=== PATIENT | male | born 1965 | race Caucasian/White ===

== ENCOUNTER 2020-09-23 09:32 | Outpatient (REF) | payer OTHER, SELFPAY ==
[2020-09-23 11:14] LABS: MANUAL DIFF FLAG NO
[2020-09-23 11:24] LABS: Basophils Absolute Auto 0.1 X10*3/uL (0.0-0.2); Basophils Percent Auto 0.8 % (0-2); Eosinophils Absolute Auto 0.3 X10*3/uL (0.0-0.4); Eosinophils Percent Auto 3.9 % (0-4); Hematocrit 43.5 % (42-52); Hemoglobin 14.2 g/dl (14.0-18.0); Imm Gran Abs Auto 0.03 X10*3/uL (0.00-0.03); Imm Gran Pct Auto 0.5 % (0.0-0.4); Lymphocytes Absolute Auto 1.6 X10*3/uL (1.2-4.9); Lymphocytes Percent Auto 24.5 % (20-40); Mean Corpuscular HGB Conc 32.6 g/dl (31.0-36.0); Mean Corpuscular Hemoglobin 28.7 pg (27.0-33.0); Mean Corpuscular Volume 87.9 fL (80-98); Mean Platelet Volume 10.9 fL (9.4-12.4); Monocytes Absolute Auto 0.4 X10*3/uL (0.1-1.2); Monocytes Percent Auto 6.3 % (2-11); Neutrophils Absolute Auto 4.2 X10*3/uL (2.0-8.3); Platelet Count 225 X10*3/uL (160-400); Red Blood Count 4.95 X10*6/uL (4.60-5.80); Red Cell Distribution Width 13.5 % (11.0-16.0); White Blood Count 6.5 X10*3/uL (4.8-10.8)
[2020-09-23 11:50] LABS: Alanine Aminotransferase 57 U/L (0-40); Albumin Level 4.6 g/dL (3.5-5.0); Alkaline Phosphatase 68 U/L (39-117); Anion Gap 12 (12-20); Aspartate Amino Transferase 71 U/L (5-37); Bilirubin Total 0.6 mg/dL (0.0-1.0); Blood Urea Nitrogen 16 mg/dL (9-16); Calcium 9.4 mg/dL (8.4-10.2); Carbon Dioxide 30 mmol/L (22-29); Chloride 104 mmol/L (96-108); Cholesterol 293 mg/dL; Estimated Glomerular Filt Rate > 60; Glucose Fasting 112 mg/dL (60-99); HDL Cholesterol 45 mg/dL; Iron 66 mcg/dL (45-160); LDL Cholesterol Calculated 213 mg/dl; Percent Iron Saturation 18 % (15-50); Potassium 4.1 mmol/L (3.3-5.1); Sodium 142 mmol/L (135-145); Total Iron Binding Capacity 367 mcg/dL (228-428); Total Protein 7.5 g/dL (6.5-8.0); Triglycerides 176 mg/dL; Unsaturated Iron Binding 301 ug/dL
[2020-09-23 11:57] LABS: Vitamin B12 597 pg/mL (200-900)
[2020-09-23 12:10] LABS: TSH reflex Free T4 2.13 uIU/mL (0.32-4.0)
[2020-09-23 12:41] LABS: Ferritin 145 ng/mL (20-250); Prostate Specific Antigen Scr 0.23 ng/mL (<0.05-4.0)
[2020-09-24 16:52] LABS: Lyme Abs Screen <0.90 index
== END 2020-09-23 09:33 | disposition home or self-care (01) ==
LOC: HO.HMGCLDS 09:32
PROVIDERS: PCP Nurse Practitioner Family; Visit Provider Nurse Practitioner Family
DX: R53.83 Other fatigue (principal); Z12.5 Encounter for screening for malignant neoplasm of prostate
CPT/HCPCS: 36415; 80053; 80061; 82607; 82728; 83540; 84153; 84443; 85025; 86617; 86618

== ENCOUNTER 2020-10-24 10:31 | Outpatient (REF) | payer OTHER, SELFPAY ==
[2020-10-24 11:55] LABS: Glucose Urine UA NEG (NEG); Leukocyte Esterase Urine NEG (NEG); Nitrite Urine NEG (NEG); PH 5.5 (5.0-8.0); Specific Gravity - Urine 1.025 (1.005-1.025); Urine Blood NEG (NEG); Urine Ketones NEG (NEG); Urine Protein NEG (NEG-TRACE)
[2020-10-24 12:09] LABS: Appearance Urine HAZY; Color Urine YELLOW
[2020-10-27 04:16] LABS: HBc Num1 0.06 S/CO (0.00-0.79); HBsAGNum1 0.22 S/CO (0.00-0.99); Hepatitis B Core Antibody Nonreactive (Nonreactive); Hepatitis B Surface Antigen Negative (Negative)
[2020-10-27 04:31] LABS: ~Hepatitis B Surface Antibody NONREACTIVE (Nonreactive); ~Hepatitis C Antibody Nonreactive (Nonreactive)
[2020-10-28 08:37] LABS: HBS Num1 0.86 mIU/mL (0-7.99); ~HepC Num1 0.08 S/CO (0.00-0.79)
[2020-10-28 10:41] LABS: Hepatitis A Antibody IgM 0.15 Index (0-0.79); ~Hepatitis A Antibody IgM Nonreactive (Nonreactive)
== END 2020-10-24 10:32 | disposition home or self-care (01) ==
LOC: HO.HMGCLDS 10:31
PROVIDERS: PCP Nurse Practitioner Family; Visit Provider Nurse Practitioner Family
DX: Z01.84 Encounter for antibody response examination (principal); Z11.59 Encounter for screening for other viral diseases; R74.8 Abnormal levels of other serum enzymes; R53.83 Other fatigue
CPT/HCPCS: 36415; 81003; 86704; 86706; 86709; 86803; 87340

== ENCOUNTER → 2020-11-06 07:08 | Outpatient (REF) | payer OTHER, SELFPAY ==
--- NOTE | 2020-11-06 07:13 | CA_ITS ---
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 - Normal right ventricular cavity size and systolic function. - There is mild dilatation of the sinuses of Valsalva and mild dilatation of the ascending aorta. Findings Left Ventricle Normal left ventricular size, thickness, systolic function, and wall motion. The visually estimated ejection fraction is between 55-60%. Diastolic function is indeterminate on the basis of available data. Spectral Doppler is indicative of an impaired relaxation filling pattern. E/E prime ratio is <8, consistent with normal filling pressures. Right Ventricle Normal right ventricular cavity size and systolic function. Atria The left atrium is normal in size. Aortic Valve Normal aortic valve structure and function. There is no aortic valve stenosis. There is trace (trivial) aortic valve regurgitation. Mitral Valve Normal mitral valve structure and function. There is no mitral valve regurgitation. There is no mitral valve stenosis. Pulmonic Valve Normal pulmonic valve structure and function. There is trace pulmonic valve regurgitation. Tricuspid Valve Normal tricuspid valve structure and function. There is trace tricuspid valve regurgitation. Normal right atrial pressure. There is no evidence of pulmonary hypertension. Great Vessels There is mild dilatation of the sinuses of Valsalva and mild dilatation of the ascending aorta. The visualized portions of the pulmonary artery and branches are normal. Venous The inferior vena cava is normal in size and collapses greater than 50% with inspiration. Pericardium/Pleural There is no evidence of pericardial effusion. Measurements 2D Linear Measurements IVSd: 1.00 0.6-0.9/0.6-1.0 cm LVIDd: 5.50 3.9-5.3/4.2-5.9 cm LVIDd Index: 2.34 2.4-3.2/2.2-3.1 cm/m2 LVIDs: 2.83 2.0-3.6 cm LVPWd: 0.93 0.7-1.1 cm Ao Root: 4.30 2.1-3.5 cm LA Diam: 3.30 2.7-3.8/3.0-4.0 cm LAIDs Index: 1.40 1.5-2.3 cm/m2 LV Mass: 253.72 67-162/88-224 g LV Mass Index: 107.97 43-95/49-115 g/m2 LVOT Diam: 2.20 3.0+(-)1.3 cm Mitral Valve MV Pk E: 0.52 MV PK A: 0.76 MV Decel Time: 317.00 E/A: 0.70 E'Lateral: 8.38 E'Medial: 6.74 E/E' Med: 7.80 E/E' Lat: 6.20 PHT: 93.00 MVA PHT: 2.37 Decel Motley: 1.65 Aortic Valve AoV Pk Delroy: 1.54 AoV Mn Delroy: 1.08 AoV VTI: 0.29 AoV Pk Grad: 9.00 Aov Mn Grad: 5.00 ANTONIO Cont.VTI: 2.91 LVOT LVOT Pk Delroy: 1.06 LVOT Mn Delroy: 0.82 LVOT VTI: 0.22 LVOT Pk Grad: 4.00 LVOT Mn Grad: 3.00 LVOT Diam: 2.20 LVOT Area: 3.80 Diastolic Function MV Pk E: 0.52 MV Pk A: 0.76 E/A: 0.70 E'Medial: 6.74 E/E' Med: 7.80 E' Laterial: 8.38 E/E' Lat: 6.20 Tricuspid Valve TR Pk Delroy: 2.00 TR Pk Grad: 16.00 RA Press: 3.00 RVSP: 19.00 Great Vessels Aorta Ao Root-2D: 4.30 2.0-3.7 cm Sinus of Valsalva: 4.30 2.0-3.5 cm Ao Asc: 4.00 2.1-3.4 cm Updated in Other Vendor System with Status of Final Andrés Hatfield MD electronically signed on 11/08/2020 8:21:12 PM with status of Final
--- NOTE | 2020-11-06 07:13 | ECG_ITS ---
Hook-up date: 2020-11-06 08:57:00 Duration: 47:59:00 Test Indications: SVT Medications: [id number] QRS complexes 1240 Ventricular ectopics which represent 1 % of total QRS comp. 200 Supraventricular ectopics which represent <1 % of total QRS comp. * Paced QRS complexs which represent % of total QRS comp. VENTRICULAR ECTOPY 1221 Isolated 58 Bigeminal Cycles 10 Couplets 0 Runs 0 Beats in Runs * Beats LONGEST at * BPM at :: -- * Beats FASTEST at * BPM at :: -- SUPRAVENTRICULAR ECTOPY 134 Isolated 18 Couplets 9 Runs 30 Beats in Runs 5 Beats LONGEST at 104 BPM at 08:03:33 2020-11-07 5 Beats FASTEST at 104 BPM at 08:03:33 2020-11-07 HEART RATES 51 MIN at 10:15:47 2020-11-07 67 AVG 103 MAX at 04:56:21 2020-11-07 LONGEST RR 1.4160 secs at 10:12:17 2020-11-07 S-T LEVELS Channel 1 - 128 mm at 08:57:00 2020-11-06 - 128 mm at 08:57:00 2020-11-06 Channel 2 - 128 mm at 08:57:00 2020-11-06 - 128 mm at 08:57:00 2020-11-06 Channel 3 - 128 mm at 02:81:61 -- - 128 mm at 02:81:61 Basic rhythm Normal sinus rhythm No long pause or profound bradycardia Frequent Premature ventricular complexes Occasional Premature atrial complexes No sustained Supraventricular tachycardia No diary submitted Referred By: Popeye Lee Overread By: JODIE ORNELAS MD
== END ==
LOC: HO.CARD 07:08
PROVIDERS: PCP Nurse Practitioner Family; Visit Provider Nurse Practitioner Family
DX: I47.1 Supraventricular tachycardia (principal)
CPT/HCPCS: 93225; 93226; 93306

== ENCOUNTER → 2020-12-01 10:52 | Outpatient (BNVA) | payer OTHER, SELFPAY | PROVIDERS: PCP Nurse Practitioner Family; Referring Provider Nurse Practitioner Family; Visit Provider Psychiatry & Neurology Neurology ==

== ENCOUNTER 2021-08-01 05:27 | Emergency (ER) | payer OTHER, SELFPAY ==
--- NOTE | ~2021-08-01 | CT_ITS ---
EXAMINATION: CT ABDOMEN AND PELVIS WITHOUT CONTRAST CLINICAL INFORMATION: Right-sided flank pain COMPARISON: Abdominal ultrasound of 05/17/2017 TECHNIQUE: Multidetector volumetric imaging was performed from the superior aspect of the liver through the pubic symphysis. Sagittal and coronal reformatted images were obtained on the technologist's workstation. This CT examination was performed using dose optimization techniques as appropriate, variously including the following: *Automated exposure control *Adjustment of mA and/or kV according to patient size (this includes techniques or standardized protocols for targeted exams where dose is matched to indication/reason for exam; i.e. extremities or head) *Use of iterative reconstruction technique DLP: 784 mGy-cm FINDINGS: LUNG BASES: The visualized lung bases are unremarkable. Moderate size hiatal hernia containing portion of the stomach. LIVER, GALLBLADDER, AND BILIARY TREE: The liver is normal in size, shape, and attenuation. No focal hepatic lesion or biliary ductal dilatation is present. The gallbladder is unremarkable with no evidence of radiopaque gallstones, gallbladder wall thickening, or obvious pericholecystic inflammatory changes. PANCREAS: Unremarkable. SPLEEN: Unremarkable. ADRENAL GLANDS: Unremarkable. KIDNEYS, URETERS AND BLADDER: The kidneys are normal in size, shape and attenuation. Urinary bladder is decompressed and therefore not optimally evaluated. A 0.3 cm calculus is noted in the bladder region, in the vicinity of the right ureterovesical junction, either in the intramural portion of the right UVJ or within the urinary bladder. No significant hydroureter is noted. There is mild hydronephrosis. Minimal right perinephric stranding. No additional radiopaque urinary tract calculi are noted. No left hydroureteronephrosis. GASTROINTESTINAL TRACT: The stomach is decompressed and grossly appears unremarkable. No abnormal small bowel dilatation. The colon is normal in caliber. No evidence of colonic wall thickening or pericolonic fat stranding. Scattered mild diffuse colonic diverticulosis. Appendix is normal. ABDOMINAL WALL: Bilateral fat-containing inguinal hernias, on the left measuring 3.6 cm and on the right measuring 3.4 cm in maximum dimensions. LYMPH NODES: No evidence of pathologically enlarged lymph nodes. VASCULAR: The aortoiliac vessels are normal in caliber. Minimal calcific atherosclerosis of the aorta. PELVIC VISCERA: Unremarkable. OSSEOUS STRUCTURES: No acute or suspicious osseous abnormality. CT/CT abdomen pelvis wo con IMPRESSION: A 0.3 cm calculus either in the intramural portion of the right ureterovesical junction or within the urinary bladder lumen. Mild right hydroureter nephrosis, no significant right hydroureter. No additional radiopaque urinary tract calculi. Moderate size hiatal hernia. Normal appendix. Scattered mild colonic diverticulosis without acute diverticulitis. Fleischner guidelines were followed.
[2021-08-01 06:13] VITALS: BP 150/90; PULSE 80; RESP 22; TEMP 36.8; O2SAT 97; BMI 31.6
[2021-08-01 06:29] LABS: Basophils Percent Auto 0.6 % (0-2); Eosinophils Absolute Auto 0.2 X10*3/uL (0.0-0.4); Eosinophils Percent Auto 3.3 % (0-4); Hematocrit 41.7 % (42.0-52.0); Hemoglobin 13.8 g/dl (14.0-18.0); Imm Gran Abs Auto 0.03 X10*3/uL (0.00-0.03); Imm Gran Pct Auto 0.4 % (0.0-0.4); Lymphocytes Absolute Auto 1.3 X10*3/uL (1.2-4.9); Lymphocytes Percent Auto 17.8 % (20-40); MANUAL DIFF FLAG NO; Mean Corpuscular HGB Conc 33.1 g/dl (31.0-36.0); Mean Corpuscular Hemoglobin 28.4 pg (27.0-33.0); Mean Corpuscular Volume 85.8 fL (80.0-98.0); Mean Platelet Volume 10.4 fL (9.4-12.4); Monocytes Absolute Auto 0.5 X10*3/uL (0.1-1.2); Monocytes Percent Auto 6.8 % (2-11); Neutrophils Absolute Auto 5.1 x10*3/uL (2.0-8.3); Neutrophils Percent Auto 71.1 % (45-73); Platelet Count 197 X10*3/uL (160-400); Red Blood Count 4.86 X10*6/uL (4.60-5.80); Red Cell Distribution Width 13.5 % (11.0-16.0); White Blood Count 7.2 X10*3/uL (4.8-10.8)
[2021-08-01 06:43] LABS: Alanine Aminotransferase 47 U/L (0-40); Albumin Level 4.6 g/dL (3.5-5.0); Alkaline Phosphatase 68 U/L (39-117); Anion Gap 14 (12-20); Aspartate Amino Transferase 50 U/L (5-37); Bilirubin Total 0.6 mg/dL (0.0-1.0); Blood Urea Nitrogen 20 mg/dL (9-16); COVID-19 Test Negative (Negative); Calcium 9.3 mg/dL (8.4-10.2); Carbon Dioxide 26 mmol/L (22-29); Chloride 105 mmol/L (96-108); Creatinine Clr Calc Pharmacy 84.4; Estimated Glomerular Filt Rate 60; Glucose Random 146 mg/dL (60-115); Potassium 4.1 mmol/L (3.3-5.1); Sodium 141 mmol/L (135-145); Total Protein 7.4 g/dL (6.5-8.0)
--- NOTE | 2021-08-01 07:16 | ED_ITS ---
HPI - Abdominal Pain General Chief Complaint: Abdominal Pain Stated Complaint: Flank pain Time Seen by Provider: 08/01/21 07:11 Source: patient Mode of arrival: ambulatory Limitations: no limitations History of Present Illness HPI narrative: 56-year-old male came in for evaluation of right flank pain. Woke up early this morning with right flank pain radiating down to the right lower abdomen and right groin area, pain is constant, severe in out of 10, described as stabbing pain, patient felt nauseous but no nausea or vomiting now, pain is not related to food or drink, no relieving factor, no aggravating fact or, never had similar pain in the past, never had history of abdominal surgery in the past. No fever, no urinary frequency, no dysuria, no blood or dark urine. Normal bowel movement with no diarrhea or blood. Related Data Home Medications Medication Instructions Recorded Confirmed omeprazole 20 mg tablet,delayed 20 mg PO DAILY 09/22/20 09/22/20 release Previous Rx's Medication Instructions Recorded quetiapine 50 mg tablet (Seroquel) 50 mg PO BEDTIME 90 days #90 tabs 12/10/20 citalopram 40 mg tablet 40 mg PO DAILY #90 tabs 06/10/21 Allergies Allergy/AdvReac Type Severity Reaction Status Date / Time oxycodone [OXYCODONE] Allergy Severe VOMITING Unverified 11/07/19 15:11 acetaminophen [Percocet] AdvReac Unknown Vomiting Verified 05/01/19 00:00 trazodone AdvReac upset Verified 12/01/20 11:06 stomach, vomiting Enviromental Allergy Unknown unknown Uncoded 12/01/20 11:06 Review of Systems Review of Systems All other systems are reviewed and are negative Constitutional: Reports as per HPI and Reports no additional constitutional complaints Eyes: Reports as per HPI and Reports no additional eye complaints Reports system reviewed and no additional complaints, except as documented Cardiovascular: Reports as per HPI and Reports no additional cardiovascular complaints Respiratory: Reports as per HPI and Reports no additional respiratory complaints Gastrointestinal: Reports as per HPI and Reports no additional gastrointestinal complaints Genitourinary: Reports no additional female genitourinary complaints Musculoskeletal: Reports no additional musculoskeletal complaints Skin/Breast: Reports system reviewed and no additional complaints, except as docu Psychiatric: Reports no additional psychiatric complaints Endocrine: Reports no additional endocrine complaints Hematologic/Lymphatic: Reports no additional hematologic/lymphatic complaints Allergic/Immunologic: Reports no additional allergic/immunologic complaints Reports system reviewed and no additional complaints, except as documented and Reports Abnormal speech present [facility] Past Medical History Medical History Mild ascending aorta dilatation Surgical History H/O heart surgery Family History Family History Unknown Mental health disorder Social History Social History Alcohol intake: current Alcohol intake frequency: holidays/special occasions only Patient Tobacco Use Status: Never used Tobacco Second Hand Smoke Exposure: No Advance Directives: No Current occupational status: employed Physical Exam ED Vital Signs: Vital Signs - 24 hr 08/01/21 06:13 Temperature 98.2 F Pulse Rate 80 Respiratory Rate 22 H Blood Pressure 150/90 H Pulse Oximetry 97 Oxygen Delivery Method Room Air BMI result Body Mass Index 31.6 Vital signs have been reviewed as appeared to be correct. Blood pressure normal. Heart rate normal. Respiration rate normal. Temperature normal. Oxygen saturation normal. Appearance: Alert. Oriented X3. No acute distress. Head: Normal external exam. Normocephalic. Atraumatic. No King signs noted. No raccoon eyes noted Eyes: PERRLA. EOMI. Conjunctiva and sclera normal. Eyelids normal. ENT: TM's Normal. Pharynx normal. Uvula midline. Moist mucous membranes. No trismus noted. No drooling noted. No muffled voice noted. Neck: Normal inspection. Neck supple. FROM. No adenopathy. Thyroid Normal. No meningeal signs. No neck mass noted. CVS: Normal heart rate and rhythm. Heart sound normal. No murmurs noted. Pulses normal throughout. Respiratory: No respiratory distress. Painless inspiration. Breath sounds normal. No wheezes/rales/rhonchi noted. Chest nontender. No accessory muscle usage noted or decreased air movement noted. Abdomen: Soft and nontender. Bowel sounds normal in all 4 quadrants. No distention noted. No organomegaly noted. No visible injury noted. Back: Right CVA tenderness. Full range of motion noted. Skin: Skin warm and dry. Normal skin color. Normal skin turgor. No rashes/lesions/lacerations noted. Extremities: No lower extremity edema. Extremities exhibit normal range of motion. Extremities nontender. Neuro: Oriented X 3. Cranial nerve exam: II-XII are grossly intact No motor deficit. No sensory deficit. Reflexes normal. Course Course Course Narrative: Assessment and plan. 56-year-old male with right flank pain, CT showed 3 mm ureteric stone at UVJ versus passed into the bladder, patient is comfortable now with no flank pain, patient was instructed to drink plenty of fluid use ibuprofen if vein is back. Will discharge the patient home with instruction of drinking plenty of fluid. MDM - Abdominal Pain Lab Data Attestation: I reviewed the patient's lab results. Result diagrams: 08/01/21 06:23 08/01/21 06:23 Labs: Lab Results 08/01/21 08/01/21 08/01/21 Range/Units 06:23 06:23 06:23 WBC 7.2 (4.8-10.8) X10*3/uL RBC 4.86 (4.60-5.80) X10*6/uL Hgb 13.8 L (14.0-18.0) g/dl Hct 41.7 L (42.0-52.0) % MCV 85.8 (80.0-98.0) fL MCH 28.4 (27.0-33.0) pg MCHC 33.1 (31.0-36.0) g/dl RDW 13.5 (11.0-16.0) % Plt Count 197 (160-400) X10*3/uL MPV 10.4 (9.4-12.4) fL Immature Gran % (Auto) 0.4 (0.0-0.4) % Neut % (Auto) 71.1 (45-73) % Lymph % (Auto) 17.8 L (20-40) % Collier % (Auto) 6.8 (2-11) % Eos % (Auto) 3.3 (0-4) % Baso % (Auto) 0.6 (0-2) % Lymph # (Auto) 1.3 (1.2-4.9) X10*3/uL Collier # (Auto) 0.5 (0.1-1.2) X10*3/uL Eos # (Auto) 0.2 (0.0-0.4) X10*3/uL Baso # (Auto) 0.0 (0.0-0.2) X10*3/uL Abs Immat Gran (auto) 0.03 (0.00-0.03) X10*3/uL Absolute Neuts (auto) 5.1 (2.0-8.3) x10*3/uL Absolute Nucleated RBC 0.000 (0.0-0.012) X10*3/uL Nucleated RBC % (auto) 0.0 (0.0-0.2) /100WBC Sodium 141 (135-145) mmol/L Potassium 4.1 (3.3-5.1) mmol/L Chloride 105 (96-108) mmol/L Carbon Dioxide 26 (22-29) mmol/L Anion Gap 14 (12-20) BUN 20 H (9-16) mg/dL Creatinine 1.25 (0.5-1.4) mg/dL Estim Creat Clear Calc 84.4 Estimated GFR 60 Random Glucose 146 H (60-115) mg/dL Calcium 9.3 (8.4-10.2) mg/dL Total Bilirubin 0.6 (0.0-1.0) mg/dL AST 50 H (5-37) U/L ALT 47 H (0-40) U/L Alkaline Phosphatase 68 (39-117) U/L Total Protein 7.4 (6.5-8.0) g/dL Albumin 4.6 (3.5-5.0) g/dL Urine Color Urine Appearance Urine pH (5.0-8.0) Ur Specific [place] (1.005-1.025) Urine Protein (NEG-TRACE) MG/DL Urine Glucose (UA) (NEG) MG/DL Urine Ketones (NEG) MG/DL Urine Blood (NEG) Urine Nitrite (NEG) Ur Leukocyte Esterase (NEG) Urine RBC (0) /HPF Urine WBC (0-4) /HPF Ur Squamous Epith Cells /LPF Amorphous Sediment /LPF Urine Bacteria /LPF Urine Mucus /LPF COVID-19 ([facility]IA) Negative (Negative) COVID-19 Clin Com See Note 08/01/21 Range/Units 07:20 WBC (4.8-10.8) X10*3/uL RBC (4.60-5.80) X10*6/uL Hgb (14.0-18.0) g/dl Hct (42.0-52.0) % MCV (80.0-98.0) fL MCH (27.0-33.0) pg MCHC (31.0-36.0) g/dl RDW (11.0-16.0) % Plt Count (160-400) X10*3/uL MPV (9.4-12.4) fL Immature Gran % (Auto) (0.0-0.4) % Neut % (Auto) (45-73) % Lymph % (Auto) (20-40) % Collier % (Auto) (2-11) % Eos % (Auto) (0-4) % Baso % (Auto) (0-2) % Lymph # (Auto) (1.2-4.9) X10*3/uL Collier # (Auto) (0.1-1.2) X10*3/uL Eos # (Auto) (0.0-0.4) X10*3/uL Baso # (Auto) (0.0-0.2) X10*3/uL Abs Immat Gran (auto) (0.00-0.03) X10*3/uL Absolute Neuts (auto) (2.0-8.3) x10*3/uL Absolute Nucleated RBC (0.0-0.012) X10*3/uL Nucleated RBC % (auto) (0.0-0.2) /100WBC Sodium (135-145) mmol/L Potassium (3.3-5.1) mmol/L Chloride (96-108) mmol/L Carbon Dioxide (22-29) mmol/L Anion Gap (12-20) BUN (9-16) mg/dL Creatinine (0.5-1.4) mg/dL Estim Creat Clear Calc Estimated GFR Random Glucose (60-115) mg/dL Calcium (8.4-10.2) mg/dL Total Bilirubin (0.0-1.0) mg/dL AST (5-37) U/L ALT (0-40) U/L Alkaline Phosphatase (39-117) U/L Total Protein (6.5-8.0) g/dL Albumin (3.5-5.0) g/dL Urine Color YELLOW Urine Appearance CLEAR Urine pH 5.5 (5.0-8.0) Ur Specific [place] >= 1.030 H (1.005-1.025) Urine Protein NEG (NEG-TRACE) MG/DL Urine Glucose (UA) NEG (NEG) MG/DL Urine Ketones NEG (NEG) MG/DL Urine Blood 3+ H (NEG) Urine Nitrite NEG (NEG) Ur Leukocyte Esterase NEG (NEG) Urine RBC 15-29 H (0) /HPF Urine WBC 0 (0-4) /HPF Ur Squamous Epith Cells NONE /LPF Amorphous Sediment 2+ /LPF Urine Bacteria NONE /LPF Urine Mucus 1+ /LPF COVID-19 (KIA) (Negative) COVID-19 Clin Com Imaging Data Abdomen and pelvis CT: Attestation: I personally reviewed and interpreted this imaging study as follows: Radiologist's impression: A 0.3 cm calculus either in the intramural portion of the right ureterovesical junction or within the urinary bladder lumen. Mild right hydroureter nephrosis, no significant right hydroureter. No additional radiopaque urinary tract calculi. ?Moderate size hiatal hernia. Normal appendix. ? Discharge Plan Discharge Clinical Impression: Calculus of right ureter Patient Disposition: Home, Self-Care Instructions: Ureteral Stones (ED) Prescriptions: No Action quetiapine [Seroquel] 50 mg tablet 50 mg PO BEDTIME 90 Days Qty: 90 0RF citalopram 40 mg tablet 40 mg PO DAILY Qty: 90 0RF omeprazole 20 mg tablet,delayed release (DR/EC) 20 mg PO DAILY Referrals: Popeye Lee, [employer] [employer] [Primary Care Provider] -
[2021-08-01 07:29] LABS: Appearance Urine CLEAR; Color Urine YELLOW; Glucose Urine UA NEG (NEG); Leukocyte Esterase Urine NEG (NEG); Nitrite Urine NEG (NEG); PH 5.5 (5.0-8.0); Specific Gravity - Urine >= 1.030 (1.005-1.025); UACC Culture Trigger NO; Urine Blood 3+ (NEG); Urine Ketones NEG (NEG); Urine Protein NEG (NEG-TRACE)
[2021-08-01] MEDS: Morphine Sulfate 2 MG/ML CARTRIDGE IVPUSH (07:34)
[2021-08-01] MEDS: Ketorolac Tromethamine 30 MG/ML VIAL IVPUSH (07:35)
[2021-08-01 08:37] LABS: Amorphous Sediment Urine 2+ /LPF; Mucus Urine 1+ /LPF; WBC Urine 0 /HPF (0-4)
== END 2021-08-01 09:48 | disposition home or self-care (01) ==
PROVIDERS: Emergency Provider Emergency Medicine; PCP Nurse Practitioner Family
DX: N20.1 Calculus of ureter (principal); Z20.822 Contact with and (suspected) exposure to COVID-19
CPT/HCPCS: 36415; 74176; 80053; 81001; 85025; 87635; 96374; 96375; 99284; J1885; J2270

== ENCOUNTER 2021-09-15 14:41 | Emergency (ER) | payer OTHER, SELFPAY ==
[2021-09-15 16:36] VITALS: PULSE 78; RESP 18; TEMP 36.8; O2SAT 97; BMI 30.7
[2021-09-15 17:30] LABS: Appearance Urine HAZY; Color Urine YELLOW; Glucose Urine UA NEG (NEG); Leukocyte Esterase Urine NEG (NEG); Nitrite Urine NEG (NEG); Specific Gravity - Urine >= 1.030 (1.005-1.025); UACC Culture Trigger NO; Urine Blood 3+ (NEG); Urine Ketones NEG (NEG); Urine Protein TRACE MG/DL (NEG-TRACE)
[2021-09-15 18:01] LABS: Amorphous Sediment Urine 1+ /LPF; Bacteria Urine TRACE /LPF; Hyaline Casts Urine 0-2 /LPF; RBC Urine TNTC /HPF (0)
== END 2021-09-15 20:59 | disposition left against medical advice (07) ==
PROVIDERS: Emergency Provider Emergency Medicine; PCP Nurse Practitioner Family
DX: R31.9 Hematuria, unspecified (principal); M54.50 Low back pain, unspecified; Z87.442 Personal history of urinary calculi
CPT/HCPCS: 81001; 99282; 99283

== ENCOUNTER 2021-12-29 15:27 | Outpatient (REF) | payer BC, SELFPAY ==
--- NOTE | ~2021-12-29 | XR_ITS ---
EXAMINATION: XR SHOULDER, LEFT CLINICAL INFORMATION: Left shoulder pain COMPARISON: Left shoulder radiographs on 01/03/2010 TECHNIQUE: AP external rotation, Grashey, scapular Y, and axillary views of the left shoulder. FINDINGS: There is mild acromioclavicular osteoarthritis. Glenohumeral joint is well preserved. No fracture. Alignment is anatomic. Soft tissues are normal with no abnormal calcifications. XR/XR shoulder LT min 2V IMPRESSION: Mild acromioclavicular joint arthritis.
[2021-12-29 16:54] LABS: Appearance Urine Clear; Color Urine Yellow; Glucose Urine UA Negative (Negative); Leukocyte Esterase Urine Negative (Negative); Nitrite Urine Negative (Negative); Specific Gravity - Urine 1.025 (1.005-1.025); Urine Blood Negative (Negative); Urine Ketones Negative (Negative); Urine Protein Negative (Neg-Trace)
== END 2021-12-29 15:28 | disposition home or self-care (01) ==
LOC: HO.HMGCX 15:27
PROVIDERS: PCP Nurse Practitioner Family; Visit Provider Nurse Practitioner Family
DX: R10.9 Unspecified abdominal pain (principal); R31.9 Hematuria, unspecified; M25.512 Pain in left shoulder
CPT/HCPCS: 73030; 81003; 87086

== ENCOUNTER 2022-01-01 06:58 | Outpatient (REF) | payer BC, SELFPAY ==
[2022-01-01 11:49] LABS: MANUAL DIFF FLAG NO
[2022-01-01 11:55] LABS: Basophils Absolute Auto 0.1 X10*3/uL (0.0-0.2); Basophils Percent Auto 0.9 % (0-2); Eosinophils Absolute Auto 0.2 X10*3/uL (0.0-0.4); Eosinophils Percent Auto 3.4 % (0-4); Hematocrit 45.2 % (42.0-52.0); Hemoglobin 14.4 g/dl (14.0-18.0); Imm Gran Abs Auto 0.03 X10*3/uL (0.00-0.03); Imm Gran Pct Auto 0.5 % (0.0-0.4); Lymphocytes Absolute Auto 1.8 X10*3/uL (1.2-4.9); Lymphocytes Percent Auto 28.3 % (20-40); Mean Corpuscular HGB Conc 31.9 g/dl (31.0-36.0); Mean Corpuscular Volume 87.9 fL (80.0-98.0); Mean Platelet Volume 10.8 fL (9.4-12.4); Monocytes Absolute Auto 0.5 X10*3/uL (0.1-1.2); Monocytes Percent Auto 8.2 % (2-11); Neutrophils Absolute Auto 3.8 x10*3/uL (2.0-8.3); Neutrophils Percent Auto 58.7 % (45-73); Platelet Count 236 X10*3/uL (160-400); Red Blood Count 5.14 X10*6/uL (4.60-5.80); Red Cell Distribution Width 13.2 % (11.0-16.0); White Blood Count 6.5 X10*3/uL (4.8-10.8)
[2022-01-01 12:13] LABS: Alanine Aminotransferase 64 U/L (0-40); Albumin Level 4.7 g/dL (3.5-5.0); Alkaline Phosphatase 62 U/L (39-117); Anion Gap 17 (12-20); Aspartate Amino Transferase 64 U/L (5-37); Bilirubin Total 0.8 mg/dL (0.0-1.0); Blood Urea Nitrogen 14 mg/dL (9-16); Calcium 9.3 mg/dL (8.4-10.2); Carbon Dioxide 26 mmol/L (22-29); Chloride 102 mmol/L (96-108); Cholesterol 299 mg/dL; Estimated Glomerular Filt Rate > 60; Glucose Fasting 112 mg/dL (60-99); HDL Cholesterol 41 mg/dL; LDL Cholesterol Calculated 219 mg/dl; Potassium 4.1 mmol/L (3.3-5.1); Sodium 141 mmol/L (135-145); Total Protein 7.6 g/dL (6.5-8.0); Triglycerides 198 mg/dL
[2022-01-01 12:26] LABS: Prostate Specific Antigen Scr 0.25 ng/mL (<0.05-4.0); TSH reflex Free T4 1.71 uIU/mL (0.32-4.0)
== END 2022-01-01 06:59 | disposition home or self-care (01) ==
LOC: HO.HMGCLDS 06:58
PROVIDERS: PCP Nurse Practitioner Family; Visit Provider Nurse Practitioner Family
DX: R10.9 Unspecified abdominal pain (principal); R31.9 Hematuria, unspecified; Z12.5 Encounter for screening for malignant neoplasm of prostate
CPT/HCPCS: 36415; 80053; 80061; 84153; 84443; 85025

== ENCOUNTER 2022-01-28 10:48 | Outpatient (REF) | payer BC, SELFPAY ==
--- NOTE | ~2022-01-28 | CT_ITS ---
EXAMINATION: CT ABDOMEN AND PELVIS WITHOUT CONTRAST CLINICAL INFORMATION: Hematuria. COMPARISON: CT abdomen and pelvis 08/01/2021. TECHNIQUE: Multidetector volumetric imaging was performed from the superior aspect of the liver through the pubic symphysis. Sagittal and coronal reformatted images were obtained on the technologist's workstation. This CT examination was performed using dose optimization techniques as appropriate, variously including the following: *Automated exposure control *Adjustment of mA and/or kV according to patient size (this includes techniques or standardized protocols for targeted exams where dose is matched to indication/reason for exam; i.e. extremities or head) *Use of iterative reconstruction technique DLP: 676 mGy-cm. FINDINGS: LUNG BASES: The lung bases are clear. There is small hiatal hernia. LIVER, GALLBLADDER, AND BILIARY TREE: The liver is normal in size, shape, and attenuation. No focal hepatic lesion or biliary ductal dilatation is present. The gallbladder is unremarkable with no evidence of radiopaque gallstones, gallbladder wall thickening, or obvious pericholecystic inflammatory changes. PANCREAS: Unremarkable. SPLEEN: Unremarkable. ADRENAL GLANDS: Unremarkable. KIDNEYS AND URETERS: The kidneys are normal in size, shape, and attenuation. No hydronephrosis, hydroureter, or calculi seen. No perinephric stranding. BLADDER: No radiopaque calculi seen at this time. A punctate radiopaque calculi was seen in the right UV junction or intramural bladder segment on the previous CT exam 08/01/2021. GASTROINTESTINAL TRACT: There is minimal scattered stool and gas seen throughout the colon without distention. The small bowel loops are normal caliber. Appendix is normal caliber. ABDOMINAL WALL: Small hiatal hernia with fat noted. LYMPH NODES: No abnormal retroperitoneal or mesenteric lymph nodes seen. VASCULAR: Unremarkable. PELVIC VISCERA: The prostate gland is normal size. Prominent bilateral inguinal canals containing fat is noted. No abnormal size inguinal or pelvic lymph nodes seen.. OSSEOUS STRUCTURES: No aggressive lytic or sclerotic process seen. CT/CT abdomen pelvis wo IV con IMPRESSION: 1. No acute intra-abdominal process seen. 2. No radiopaque urolith or hydroureteronephrosis. Consider CT abdomen and pelvis with contrast or renal and bladder ultrasound. 3. Small hiatal hernia. Fleischner guidelines were followed.
== END 2022-01-28 10:49 | disposition home or self-care (01) ==
LOC: HO.CT 10:48
PROVIDERS: PCP Nurse Practitioner Family; Visit Provider Nurse Practitioner Family
DX: R31.9 Hematuria, unspecified (principal)
CPT/HCPCS: 74176

== ENCOUNTER 2022-03-01 15:24 | Outpatient (REF) | payer BC, SELFPAY ==
--- NOTE | ~2022-03-01 | US_ITS ---
EXAMINATION: US RETROPERITONEAL LIMITED (RENAL ONLY) CLINICAL INFORMATION: Hematuria, unspecified. COMPARISON: CT abdomen and pelvis 01/28/2022. Ultrasound abdomen complete 05/17/2017 and 05/19/2014. TECHNIQUE: Real-time imaging of the kidneys. FINDINGS: RIGHT KIDNEY: 12.1 x 5.5 x 5.3 cm (SAG x AP x TRV). The kidney is normal in size, contour, and echogenicity. Renal cortical thickness is normal. No calculi or focal parenchymal lesions. No hydronephrosis. LEFT KIDNEY: 12.5 x 5.9 x 5.3 cm (SAG x AP x TRV). The kidney is normal in size, contour, and echogenicity. Renal cortical thickness is normal. No calculi or focal parenchymal lesions. No hydronephrosis. US/US renal BI IMPRESSION: No focal lesion. No stones or mass.
== END 2022-03-01 15:25 | disposition home or self-care (01) ==
LOC: HO.HMGCX 15:24
PROVIDERS: PCP Nurse Practitioner Family; Visit Provider Nurse Practitioner Family
DX: R31.9 Hematuria, unspecified (principal)
CPT/HCPCS: 76775

== ENCOUNTER 2022-03-09 15:33 | Outpatient (REF) | payer BC, SELFPAY ==
--- NOTE | ~2022-03-09 | US_ITS ---
EXAMINATION: US PELVIS LIMITED (BLADDER) CLINICAL INFORMATION: Hematuria, unspecified. COMPARISON: Renal ultrasound 03/01/2022. CT abdomen and pelvis 01/28/2022. TECHNIQUE: Real-time imaging of the bladder. FINDINGS: BLADDER: Partially distended. Bilateral ureteral jets are demonstrated. Prevoid bladder volume is 122 mL. Postvoid bladder volume is 13.6 mL. ADDITIONAL FINDINGS: Prostate is enlarged measuring 44.8 mL. US/US bladder IMPRESSION: Unremarkable sonographic appearance of the bladder. Prostatomegaly..
== END 2022-03-09 15:34 | disposition home or self-care (01) ==
LOC: HO.HMGCX 15:33
PROVIDERS: PCP Nurse Practitioner Family; Visit Provider Nurse Practitioner Family
DX: R31.9 Hematuria, unspecified (principal)
CPT/HCPCS: 76857

== ENCOUNTER 2022-09-27 09:44 | Outpatient (AMB) | payer OTHER, SELFPAY ==
--- NOTE | 2022-09-27 10:48 | MHC.OFFWIV ---
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 has been having issues putting pressure on it or when going to stand from sitting. He did have knee surgery in the past. Patient Tobacco Use Status: Never used Tobacco Allergies oxycodone [OXYCODONE] Allergy (Severe, Verified 09/27/22 10:51) VOMITING acetaminophen [Percocet] Adverse Reaction (Unknown, Verified 09/27/22 10:51) Vomiting trazodone Adverse Reaction (Verified 09/27/22 10:51) upset stomach, vomiting Enviromental Allergy (Unknown, Uncoded 09/27/22 10:51) unknown Do you need a note to return to daycare/school/sports/work: No HPI HPI Comments History of Present Illness Details 57-year-old male presents with over 1 week of right knee pain. States that he is demanding job and is always kneeling. States that he bumped into the bedpost few days ago after a strenuous work day, which exacerbated the pain in his knee. He does have some swelling to the knee, but does not report any swelling to the ankles. PFSH Medical History Mild ascending aorta dilatation Surgical History H/O heart surgery Family History Unknown Mental health disorder Social History Housing: House Alcohol intake: current Alcohol intake frequency: holidays/special occasions only Patient Tobacco Use Status: Never used Tobacco e-Cigarette/Vaping Use: Never Used Second Hand Smoke Exposure: No service: No Current occupational status: employed Current occupation: [employer] Current occupational exposures/hazards: Yes Cognitive needs: No Hearing needs: No Vision needs: No Review of Systems Const Details: Constitutional: No Fever, No Chills Cardiovascular: No Chest Pain, No SOB Respiratory: No Cough, No Dyspnea Gastrointestinal: No Nausea, No Vomiting, No Diarrhea, No abdominal Pain Musculoskeletal: positive right knee swelling and pain, No Myalgias, No Joint Swelling Skin: No Skin lacerations, No rash Neuro: No Weakness, No Numbness, No Paresthesias All systems reviewed & are unremarkable except as noted in HPI and below Physical Exam Vital Signs: Last Vital Signs Temp 97.2 F 09/27/22 10:52 Pulse 74 09/27/22 10:52 BP 120/80 09/27/22 10:52 Pulse Ox 97 09/27/22 10:52 Oxygen Delivery Method Room Air 09/27/22 10:52 BMI result Body Mass Index 30.8 Appearance: Alert. Oriented X3. No acute distress. Eyes: Pupils equal, round and reactive to light. Neck: Normal inspection. Neck supple. CVS: Normal heart rate and rhythm. Pulses normal. Respiratory: No respiratory distress. Breath sounds normal. Skin: Skin warm and dry. Normal skin color. Normal skin turgor. Extremities: No lower extremity edema. Physical exam indicates suprapatellar effusion, patient has full range of motion, brisk capillary refill, equal pulses bilaterally. No edema to the ankle. Negative varus and valgus, negative posterior and anterior drawer. I do not appreciate any tendon laxity to the right knee. Neuro: No motor deficit. No sensory deficit. Cranial nerves 2-12 intact Assessment & Plan Assessment & Plan (1) Swelling of knee joint, right: Code(s): M25.461 - Effusion, right knee (2) Knee pain: Code(s): M25.569 - Pain in unspecified knee Plan 57-year-old male presents with over 1 week of right knee pain. States that he is demanding job and is always kneeling. States that he bumped into the bedpost few days ago after a strenuous work day, which exacerbated the pain in his knee. He does have some swelling to the knee, but does not report any swelling to the anklesHe is ambulatory, but states that it is painful and is now walking with a limp. He does have a history of arthroscopic surgery to that right knee. He does not report any loss sensation, or decreased range of motion to the ankle or toes. Will order x-rays. Differentials include but not limited to fracture, dislocation, arthritis, effusion, tendon and or ligament deficit 11:30 x-rays negative for acute findings. Physical exam is consistent with effusion. Will place patient in Jonathan wrap, supportive measures with rest, ice, elevation, Tylenol and Motrin. Will refer patient to orthopedics. Patient verbalized understanding of and agrees to plan of care discharge home. Verbalized understanding of signs symptoms indicating need for emergent intervention. Orders: Referrals Orthopedics Referral M25.461 - Effusion, right knee, M25.569 - Pain in unspecified knee Patient Instructions: You were evaluated for right knee pain. X-rays are negative for fracture dislocation. Your symptoms are consistent with a knee effusion. Please keep Jonathan wrap in place to help reduce swelling. Rest ice and elevate to help reduce pain and swelling. Alternate Tylenol 650 mg every 6 hours and Motrin 600 mg every 6 hours as needed for pain management. Consider taking these medications 3 hours apart so you have pain and fever management every 3 hours. Write down what time you take these medications to prevent accidental overdose. Motrin is the same medication as Advil and ibuprofen. Tylenol is the same medication as acetaminophen. Follow-up with orthopedics. I have referred you to [facility]. please call and request an appointment for evaluation. Thank you for choosing this urgent care for evaluation. Please follow-up with primary care physician as needed. Return to the emergency department for any new, concerning, or worsening symptoms. Coding Level of Care Code Est Pt Level 3 (40820) Diagnoses Swelling of knee joint, right M25.461 Knee pain M25.569
[2022-09-27 10:52] VITALS: BP 120/80; PULSE 74; TEMP 36.2; O2SAT 97; BMI 30.8
== END 2022-09-27 11:38 | disposition home or self-care (01) ==
PROVIDERS: PCP Nurse Practitioner Family; Visit Provider Nurse Practitioner Family
DX: M25.461 Effusion, right knee (principal); M25.569 Pain in unspecified knee
CPT/HCPCS: 99213

== ENCOUNTER 2022-09-27 11:01 | Outpatient (REF) | payer OTHER, SELFPAY ==
--- NOTE | ~2022-09-27 | XR_ITS ---
EXAMINATION: XR KNEE, RIGHT CLINICAL INFORMATION: Right knee effusion. COMPARISON: None available. TECHNIQUE: Four views of the right knee. FINDINGS: No significant tricompartmental degenerative joint changes are seen. There is no acute fracture or dislocation. There is a small suprapatellar joint effusion. The soft tissues are unremarkable. XR/XR knee RT 4V IMPRESSION: Small suprapatellar joint effusion. No acute fracture or significant degenerative changes.
== END 2022-09-27 11:02 | disposition home or self-care (01) ==
LOC: HO.HMGCX 11:01
PROVIDERS: PCP Nurse Practitioner Family; Visit Provider Nurse Practitioner Family
DX: M25.461 Effusion, right knee (principal); M25.561 Pain in right knee
CPT/HCPCS: 73564

== ENCOUNTER 2022-09-29 09:21 | Outpatient (AMB) | payer OTHER, SELFPAY ==
--- NOTE | 2022-09-29 09:27 | MHC.OFFVIS ---
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 The patient states that he underwent right knee arthroscopic surgery approximately 20 years ago when he twisted his knee while jumping over a large pipe. The patient was doing fine until recently when he re-injured his knee. Pt states he was going into an attic during work and twisted your knee and then he fell on a rock 5 days later on the same knee. Patient complaining of right knee locking, giving out and swelling. Patient has tried advil with little relief, also has tried cold/hot compresses with little relief. He has a brace on but states he hears popping in his knee. The patient states that his right knee symptoms are very similar to those he experienced 20 years ago prior to his arthroscopic surgery. Allergies oxycodone [OXYCODONE] Allergy (Severe, Verified 09/29/22 09:32) VOMITING acetaminophen [Percocet] Adverse Reaction (Unknown, Verified 09/29/22 09:32) Vomiting trazodone Adverse Reaction (Verified 09/29/22 09:32) upset stomach, vomiting Enviromental Allergy (Unknown, Uncoded 09/29/22 09:32) unknown Medication List - Last Reconciled 09/29/22 by Adelfo Monsalve MD citalopram 40 mg PO DAILY omeprazole 20 mg PO DAILY rosuvastatin 20 mg PO DAILY [facility] Medical History Mild ascending aorta dilatation Surgical History H/O heart surgery Family History Unknown Mental health disorder Social History Housing: House Alcohol intake: current Alcohol intake frequency: holidays/special occasions only Patient Tobacco Use Status: Never used Tobacco e-Cigarette/Vaping Use: Never Used Second Hand Smoke Exposure: No service: No Current occupational status: employed Current occupation: [employer] Current occupational exposures/hazards: Yes Cognitive needs: No Hearing needs: No Vision needs: No Physical Exam Const Other: Well-nourished well-developed very friendly male awake alert and oriented x3 in no acute distress Extrem Other: Bilateral lower extremity examination shows good capillary refill, no skin lesions noted, normal sensation light touch Right knee examination shows a mild effusion, minimal crepitus with range of motion, tenderness along his medial joint line, positive Charleen's test, no instability Results Reviewed Results Reviewed: X-rays of the patient's right knee show mild diffuse joint space narrowing, no acute bony abnormalities Assessment & Plan Assessment & Plan (1) Tear of medial meniscus of right knee: Code(s): S83.241A - Other tear of medial meniscus, current injury, right knee, initial encounter Plan: Mr. Corral presents with recurrent right knee pain and mechanical symptoms most likely due to a recurrence medial meniscus tear. Thus, I will send the patient for an MRI of his right knee for further evaluation. If he does have a recurrent tear I will recommend revision arthroscopic surgery to optimize his future functional level. He will continue with activity modifications in the meantime. Feel free to call me at any time should questions regarding his orthopedic management arise. Thank you very much for asking me to see this very friendly gentleman. I spent 20 minutes in reviewing the patient's records and imaging studies, seeing the patient and documenting in the medical record. Orders: Orders MR knee RT wo con Today S83.241A - Other tear of medial meniscus, current injury, right knee, initial encounter Coding Level of Care Code New Pt Level 2 (71056) Diagnoses Tear of medial meniscus of right knee S83.241A
== END 2022-09-29 09:48 | disposition home or self-care (01) ==
PROVIDERS: PCP Nurse Practitioner Family; Visit Provider Orthopaedic Surgery
DX: S83.241A Other tear of medial meniscus, current injury, right knee, initial encounter (principal)
CPT/HCPCS: 99202

== ENCOUNTER → 2022-09-29 09:21 | Outpatient (BNVA) | payer OTHER, SELFPAY | PROVIDERS: PCP Nurse Practitioner Family; Visit Provider Orthopaedic Surgery ==

== ENCOUNTER 2022-10-20 13:45 | Outpatient (AMB) | payer OTHER, SELFPAY ==
--- NOTE | 2022-10-20 14:06 | MHC.OFFVIS ---
Intake Vital Signs 10/20/22 14:10 Height 6 ft 2 in Weight 240 lb BMI 30.8 Intake Visit Reasons: OV RT knee german inj Intake Note: Naseem presents today for his right knee pain. States his pain has increased and isnt getting a good night sleep due to pain. He is pending an MRI study next monday. Patient states that he further aggravated his right knee several days ago when he fell and twisted his knee. Since that time he has had difficulty walking. He has tried Tylenol and meloxicam which gave him only mild relief. He has also done physical therapy exercises which aggravated his Allergies oxycodone [OXYCODONE] Allergy (Severe, Verified 10/20/22 14:10) VOMITING acetaminophen [Percocet] Adverse Reaction (Unknown, Verified 10/20/22 14:10) Vomiting trazodone Adverse Reaction (Verified 10/20/22 14:10) upset stomach, vomiting Enviromental Allergy (Unknown, Uncoded 10/20/22 14:10) unknown Medication List - Last Reconciled 10/20/22 by Adelfo Monsalve MD citalopram 40 mg PO DAILY meloxicam 15 mg PO DAILY PRN omeprazole 20 mg PO DAILY rosuvastatin 20 mg PO DAILY PFSH Medical History Mild ascending aorta dilatation Surgical History H/O heart surgery Family History Unknown Mental health disorder Social History Housing: House Alcohol intake: current Alcohol intake frequency: holidays/special occasions only Patient Tobacco Use Status: Never used Tobacco e-Cigarette/Vaping Use: Never Used Second Hand Smoke Exposure: No service: No Current occupational status: employed Current occupation: [employer] Current occupational exposures/hazards: Yes Cognitive needs: No Hearing needs: No Vision needs: No Physical Exam Vital Signs: BMI result Body Mass Index 30.8 Const Other: Well-nourished well-developed very friendly male awake alert and oriented x3 in no acute distress Extrem Other: Bilateral lower extremity examination shows good capillary refill, no skin lesions noted, normal sensation light touch Right knee examination shows a moderate effusion, mild crepitus with range of motion, tenderness along his medial joint line, positive Charleen's test, no instability Office Procedures Joint Injection/Drain Joint Injection/Drain Primary Site: right knee Prep: site was prepped using aseptic technique Injected: 40 mg of, Kenalog and 1% plain lidocaine Procedure: The patient tolerated the procedure well Coding - Large joint Procedure code (CPT) selection complete Results Reviewed Results Reviewed: 10/20/22 14:16 Lidocaine HCl 2 % MPF [Xylocaine 2 % MPF] 5 ml .ROUTE .STK-MED ONE Triamcinolone Acetonide [Kenalog-40] 40 mg .ROUTE .STK-MED ONE Assessment & Plan Assessment & Plan (1) Tear of medial meniscus of right knee: Code(s): S83.241A - Other tear of medial meniscus, current injury, right knee, initial encounter Plan: Mr. Corral presents with worsening right knee pain and mechanical symptoms most likely due to a tear of his medial meniscus. The patient is scheduled to get an MRI of his right knee next week. Patient states that he has difficulty walking because of his pain at this point. Thus, the risks and benefits of a right knee cortisone injection were discussed at length with the patient. The patient wished to proceed. He tolerated the injection well. Prior to the injection I aspirated 20 cc of clear fluid from his right knee. He will follow up for his MRI as scheduled. I will see him back following the MRI to further discuss the findings and treatment options. Feel free to call me at any time should questions regarding his orthopedic management arise. I spent 22 minutes in reviewing the patient's records and imaging studies, seeing the patient and documenting in the medical record. Orders: Orders AMB Joint Injection/Aspiration Today S83.241A - Other tear of medial meniscus, current injury, right knee, initial encounter Coding Level of Care Code Est Pt Level 2 (33773) Diagnoses Tear of medial meniscus of right knee S83.241A CPT Codes Coding - Large joint: 81505 - Large joint ([id number])
[2022-10-20 14:10] VITALS: BMI 30.8
== END 2022-10-20 14:34 | disposition home or self-care (01) ==
PROVIDERS: PCP Nurse Practitioner Family; Visit Provider Orthopaedic Surgery
DX: S83.241A Other tear of medial meniscus, current injury, right knee, initial encounter (principal)
CPT/HCPCS: 20610; 99214

== ENCOUNTER → 2022-10-20 13:45 | Outpatient (BNVA) | payer OTHER, SELFPAY | PROVIDERS: PCP Nurse Practitioner Family; Visit Provider Orthopaedic Surgery | DX: S83.241A Other tear of medial meniscus, current injury, right knee, initial encounter (principal); W18.30XA Fall on same level, unspecified, initial encounter; Y93.9 Activity, unspecified; Y92.9 Unspecified place or not applicable; Y99.9 Unspecified external cause status | CPT/HCPCS: 20610; J3301 ==

== ENCOUNTER 2022-10-28 18:53 | Outpatient (REF) | payer OTHER, SELFPAY ==
--- NOTE | ~2022-10-28 | MR_ITS ---
EXAMINATION: MR KNEE WITHOUT CONTRAST, RIGHT CLINICAL INFORMATION: Right knee pain, injury. COMPARISON: Radiographs 09/27/2022 TECHNIQUE: MRI of the knee without contrast was performed using routine sequences on a high-field scanner. FINDINGS: MENISCI: Medial Meniscus: Irregular undersurface tearing of the posterior horn extending to the meniscal body where there is inner margin truncation and slight extrusion. Lateral Meniscus: Undersurface fraying near the root of the posterior horn. LIGAMENTS: Cruciate: Intermediate signal extending along the ACL likely represents mucoid degeneration. Mild degeneration of the femoral attachment of the PCL. Collateral: Intact. Strain/tendinitis at the lateral gastrocnemius origin. Semimembranosus insertional tendinopathy. EXTENSOR MECHANISM: Intact ARTICULAR CARTILAGE/BONE: Patellofemoral Compartment: Areas of cartilage thinning and surface irregularity throughout the central trochlea and lateral patellar facet. Medial Compartment: Cartilage thinning and surface irregularity throughout the weight-bearing aspect. Lateral Compartment: Focal chondral irregularity of the posterior weight-bearing femoral condyle. JOINT FLUID AND BURSAE: Small joint effusion. MR/MR knee RT wo con IMPRESSION: 1. Irregular undersurface tearing of the posterior horn of the medial meniscus extending to the meniscal body. 2. Undersurface fraying near the root of the posterior horn of the lateral meniscus. 3. 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 4. Strain/tendinitis of the lateral gastrocnemius origin. Semimembranosus insertional tendinopathy. 5. Mucoid degeneration of the cruciate ligaments.
== END 2022-10-28 18:54 | disposition home or self-care (01) ==
LOC: HO.MRI 18:53
PROVIDERS: PCP Nurse Practitioner Family; Visit Provider Orthopaedic Surgery
DX: S83.241A Other tear of medial meniscus, current injury, right knee, initial encounter (principal)
CPT/HCPCS: 73721

== ENCOUNTER 2022-11-03 15:05 | Outpatient (AMB) | payer SELFPAY ==
--- NOTE | 2022-11-03 15:07 | A.OFFVIS_ITS ---
Intake Intake Visit Reasons: ov-right knee MRI review Intake Note: Naseem 57 yr old male presents with complaints of progressively worsening right knee pain and giving way. The patient states that he underwent right knee arthroscopic surgery approximately 20 years ago when he twisted his knee while jumping over a large pipe. The patient was doing fine until recently when he re-injured his knee. Pt states he was going into an attic during work and twisted your knee and then he fell on a rock 5 days later on the same knee. Patient complaining of right knee locking, giving out and swelling. Has tried cold/hot compresses with little relief. He has a brace on but states he hears p opping in his knee. The patient states that his right knee symptoms are very similar to those he experienced 20 years ago prior to his arthroscopic surgery. He has had multiple injections. The most recent injection gave him minimal relief. He has also tried Tylenol and anti-inflammatory medicines which gave him minimal relief. The patient has done physical therapy for 12 weeks over the last 6 months which aggravated his pain. He states that his right knee will give out several times per day. Allergies oxycodone [OXYCODONE] Allergy (Severe, Verified 11/03/22 15:08) VOMITING acetaminophen [Percocet] Adverse Reaction (Unknown, Verified 11/03/22 15:08) Vomiting trazodone Adverse Reaction (Verified 11/03/22 15:08) upset stomach, vomiting Enviromental Allergy (Unknown, Uncoded 11/03/22 15:08) unknown Medication List - Last Reconciled 11/04/22 by Adelfo Monsalve MD citalopram 40 mg PO DAILY meloxicam 15 mg PO DAILY PRN omeprazole 20 mg PO DAILY rosuvastatin 20 mg PO DAILY [facility] Medical History Mild ascending aorta dilatation Surgical History H/O heart surgery Family History Unknown Mental health disorder Social History Housing: House Alcohol intake: current Alcohol intake frequency: holidays/special occasions only Patient Tobacco Use Status: Never used Tobacco e-Cigarette/Vaping Use: Never Used Second Hand Smoke Exposure: No service: No Current occupational status: employed Current occupation: [employer] Current occupational exposures/hazards: Yes Cognitive needs: No Hearing needs: No Vision needs: No Physical Exam Const Other: Well-nourished well-developed very friendly male awake alert and oriented x3 in no acute distress Lungs clear to auscultation bilaterally with symmetric expansion Cardiovascular exam regular rate and rhythm Abdominal exam is soft nontender nondistended Extrem Other: Bilateral lower extremity examination shows good capillary refill, no skin lesions noted, normal sensation light touch Right knee examination shows a mild effusion, minimal crepitus with range of motion, tenderness along his medial and lateral joint lines, positive Charleen's test, no instability Results Reviewed Results Reviewed: X-rays of the patient's right knee show mild diffuse joint space narrowing, no acute bony abnormalities MRI of the patient's right knee shows mild diffuse degenerative changes, tearing of his medial and lateral menisci, no acute bony abnormalities Assessment & Plan Assessment & Plan (1) Tear of medial meniscus of right knee: Code(s): S83.241A - Other tear of medial meniscus, current injury, right knee, initial encounter Plan: Mr. Corral presents with right knee pain and mechanical symptoms due to tearing of his medial and lateral menisci. I had a lengthy discussion with the patient regarding the treatment options. At this point he has failed continued non operative treatments. The risks and benefits of right knee arthroscopic surgery were discussed at length with the patient. The patient wishes to proceed. Surgery will most likely involve right knee arthroscopic partial medial and lateral meniscectomies. He does understand that he may not get 100% relief of his symptoms depending on the severity of his degenerative changes. The patient will contact my office to pick a surgery date. He will follow-up as instructed. Feel free to call me at any time should questions regarding his orthopedic management arise. I spent 22 minutes in reviewing the patient's records and imaging studies, seeing the patient and documenting in the medical record. Coding Level of Care Code Est Pt Level 2 (52262) Diagnoses Tear of medial meniscus of right knee S83.241A
== END 2022-11-03 15:26 | disposition home or self-care (01) ==
PROVIDERS: PCP Nurse Practitioner Family; Visit Provider Orthopaedic Surgery
DX: S83.241A Other tear of medial meniscus, current injury, right knee, initial encounter (principal)
CPT/HCPCS: 99212

== ENCOUNTER → 2022-11-03 15:05 | Outpatient (BNVA) | payer OTHER, SELFPAY | PROVIDERS: PCP Nurse Practitioner Family; Visit Provider Orthopaedic Surgery ==

== ENCOUNTER 2023-04-11 07:31 | Outpatient (AMB) | payer OTHER, SELFPAY ==
[2023-04-11 07:43] VITALS: BP 136/86; PULSE 90; O2SAT 97; BMI 30.8
--- NOTE | 2023-04-11 07:43 | MHC.PC.OV ---
Vital Signs 04/11/23 07:43 Height 6 ft 2 in Weight 240 lb BMI 30.8 BP 136/86 Blood Pressure Location Lt brachial Position Sitting Pulse 90 Pulse Source Pulse Oximeter Pulse Oximetry (%) 97 Oxygen Delivery Method Room Air Intake Visit Reasons: annual exam Intake Note: Pt is here today for PE. Allergies oxycodone [OXYCODONE] Allergy (Severe, Verified 04/11/23 07:45) VOMITING acetaminophen [Percocet] Adverse Reaction (Unknown, Verified 04/11/23 07:45) Vomiting trazodone Adverse Reaction (Verified 04/11/23 07:45) upset stomach, vomiting Enviromental Allergy (Unknown, Uncoded 04/11/23 07:45) unknown Medication List - Last Reconciled 04/11/23 by ALEJO Jordan citalopram 40 mg PO DAILY omeprazole 20 mg PO DAILY rosuvastatin 20 mg PO DAILY Tobacco use date assessed: 04/11/23 Dental Screening Dental Screen Date: 04/11/23 Did you have a dental visit in the last 12 months?: Yes Did you have a dental problem in the last 6 months where you did not have access to dental care?: No Was dental information given to patient?: Patient has dentist HPI annual exam HPI Details Pt is here for a PE. Will order labs. Due for PSA, will order. Denies dribbling with urination, weak stream, does report nocturia every 3 hours (has had this for years). Prostate does feel enlarged on exam, will refer to urology. Pt was referred for colon screen previously but has not gone. Will place another referral. [facility] Medical History Mild ascending aorta dilatation Surgical History H/O heart surgery Family History Unknown Mental health disorder Social History Housing: House Alcohol intake: current Alcohol intake frequency: holidays/special occasions only Patient Tobacco Use Status: Never used Tobacco e-Cigarette/Vaping Use: Never Used Second Hand Smoke Exposure: No service: No Current occupational status: employed Current occupation: [employer] Current occupational exposures/hazards: Yes Cognitive needs: No Hearing needs: No Vision needs: Yes Questionnaire PHQ-9 Over the last 2 weeks, how often have you been bothered by any of the following problems? 1. Little interest or pleasure in doing things: not at all 2. Feeling down, depressed, or hopeless: not at all 3. Trouble falling or staying asleep, or sleeping too much: several days 4. Feeling tired or having little energy: several days 5. Poor appetite or overeating: several days 6. Feeling bad about yourself - or that you are a failure or have let yourself or your family down: not at all 7. Trouble concentrating on things, such as reading the newspaper or watching television: not at all 8. Moving or speaking so slowly that other people could have noticed. Or the opposite - being so fidgety or restless that you have been moving around a lot more than usual: not at all 9. Thoughts that you would be better off or of hurting yourself in some way: not at all Total score: 3 Depression Screening Interpretation: Negative Depression Screening Done: Yes 63194 - PHQ-9 Billing: Yes Source: Developed by Drs. Kev Alonzo, Yelena Gill, Morales Fair and colleagues, with an educational marissa from [employer]. Thrive Questionnaire Date Thrive assessed: 04/11/23 I am a: Patient What is your living situation today?: I have a steady place to live Within the past 12 months, did the food you bought not last and you didn't have the money to get more?: Never true Within the past 12 months, did you worry whether your food would run out before you got money to buy more?: Never true Do you have trouble paying for medicines?: No Do you have trouble getting transportation to medical appointments?: No Do you have trouble paying your heating and electricity bill?: No Do you have trouble taking care of your child, family member or friend?: No Do you have trouble with day-to-day activities such as bathing, preparing meals, shopping, managing finances, etc.?: No Are you currently unemployed and looking for a job?: No Are you interested in more education?: No Please select the resources that you would like help with: None Currently or been in a relationship where the following occur: no concerns reported THRIVE Score: 0 AUDIT C Alcohol Use Questionnaire (AUDIT-C) 1. How often do you have a drink containing alcohol?: Monthly or less 2. How many drinks containing alcohol do you have on a typical day when you are drinking?: 1 or 2 3. How often do you have six or more drinks on one occasion?: Never Total Score: 1 Score Reviewed/Action Taken: Yes LULY-7 AMB Questionnaire LULY-7 Date LULY - 7 assessed: 04/11/23 Feeling nervous, anxious, or on edge: 0 = Not at all Not being able to stop or control worryin = Not at all Worrying too much about different things: 0 = Not at all Trouble relaxin = Not at all Being so restless that it is hard to sit still: 0 = Not at all Becoming easily annoyed or irritable: 1 = Several days Feeling afraid as if something awful might happen: 0 = Not at all Total LULY-7 score (0-4 normal; 5-9 mild; 10-14 moderate; 15-21 severe): 1 Source: Developed by Drs. Kev Alonzo, Yelena Gill, Morales Fair and colleagues, with an educational marissa from [employer]. Review of Systems Const Denies chills and Denies fever(s) Eyes Denies blurry vision ENT Denies vertigo, Denies dizziness and Denies sore throat Card Denies chest pain at rest, Denies chest pain with activity, Denies diaphoresis, Denies dyspnea and Denies dyspnea on exertion Resp Denies cough, Denies dyspnea, Denies dyspnea on exertion and Denies wheezing GI Denies abdominal pain, Denies melena, Denies hematochezia, Denies constipation, Denies diarrhea and Denies loose stools Denies hematuria Musc Denies numbness and Denies tingling Skin/Breast Denies lesions Neuro Denies vertigo, Denies dizziness, Denies numbness and Denies tingling Psych Denies anxiety, Denies depression, Denies homicidal ideation, Denies suicidal ideation and Denies other (substance abuse) Aller/Immun Denies wheezing Physical exam (Primary Care) Vital Signs: Last Vital Signs Pulse 90 04/11/23 07:43 BP 136/86 04/11/23 07:43 Pulse Ox 97 04/11/23 07:43 Oxygen Delivery Method Room Air 04/11/23 07:43 BMI result Body Mass Index 30.8 Tobacco/Smoking Status: Tobacco use Status Tobacco use date assessed 04/11/23 04/11/23 07:48 Patient Tobacco Use Status Never used Tobacco 04/11/23 07:48 e-Cigarette/Vaping Use Never Used 04/11/23 07:48 PHQ-9: PHQ-9 Score PHQ-9: Total score 3 04/11/23 07:48 Depression Screening Interpretation: Negative Thrive Assessment: Date of Thrive Assessment Date Thrive assessed 04/11/23 04/11/23 07:48 Currently or been in a relationship where the following occur: no concerns reported Const General: cooperative Nutritional Appearance: well nourished Orientation/consciousness: patient oriented x3 HENMT Head: Yes normal to inspection, Yes normocephalic and Yes atraumatic Ears: TM's normal bilaterally Eyes General: appearance normal, both eyes and all related structures Alignment and Position: alignment normal and position normal Neck Neck: Yes normal visual inspection and Yes no lymphadenopathy Thyroid: Thyroid normal Resp Effort & Inspection: normal respiratory effort Auscultation: clear to auscultation bilaterally Cardio Rate: regular rate Rhythm: regular rhythm Heart sounds: S1 normal heart sound present, S2 normal heart sound present and no murmurs GI Palpation (GI): Soft to palpation and nontender Auscultation: normal bowel sounds Other: REMY: prostate felt enlarged, difficult to palpate due to pt's position Male General Exam: Yes normal external exam Penis: normal penis Scrotum: scrotum normal, testes descended bilaterally and no inguinal hernias Testes: no testicular mass Skin Rashes: no rashes Neuro General: patient oriented x3, moves all extremities, no focal motor deficits and deep tendon reflexes 2+ bilaterally Romberg Test: Negative Psych Appearance: grossly normal Mental Status: mental status grossly normal Speech and movement: Normal speech and movement present Affect: normal affect Attitude: cooperative Thought process: Normal thought process present Thought content: Normal thought content present Insight: Good insight present (Psych) Judgement: Good judgement present (Psych) Assessment and Plan Assessment & Plan (1) Screening for colon cancer: Code(s): Z12.11 - Encounter for screening for malignant neoplasm of colon Plan: Referred to GI (2) Physical exam: Code(s): Z00.00 - Encounter for general adult medical examination without abnormal findings Plan: Labs ordered (3) Enlarged prostate: Code(s): N40.0 - Benign prostatic hyperplasia without lower urinary tract symptoms Plan: Referred to urology Plan The patient agreed to the use of a medical detailist for this encounter. Scribed for ALEJO Diaz by gibson Colon scribe, on 04/11/2023 at 07:50 EST. Orders: Orders Comprehensive [place]. Panel Fast Today Z00.00 - Encounter for general adult medical examination without abnormal findings TSH reflex Free T4 Today Z00.00 - Encounter for general adult medical examination without abnormal findings UA CC w/rflx Micro + Cult Today Z00.00 - Encounter for general adult medical examination without abnormal findings Prostate Specific Antigen Scr Today Z12.5 - Encounter for screening for malignant neoplasm of prostate Complete Blood Count Auto Diff Today Z00.00 - Encounter for general adult medical examination without abnormal findings Lipid Panel Today Z00.00 - Encounter for general adult medical examination without abnormal findings Referrals Urology Referral N40.0 - Benign prostatic hyperplasia without lower urinary tract symptoms Gastroenterology Referral Z12.11 - Encounter for screening for malignant neoplasm of colon Medications: Refilled citalopram 40 mg PO DAILY 90 tabs 2RF Discontinued rosuvastatin Discontinued Reason: Patient no longer taking 20 mg PO DAILY 90 tabs 1RF E78.5 - Hyperlipidemia, unspecified Coding Level of Care Code Est Pt Prev Care 40-64y(03799) Diagnoses Screening for colon cancer Z12.11 Physical exam Z00.00 Enlarged prostate N40.0
== END 2023-04-11 08:11 | disposition home or self-care (01) ==
PROVIDERS: PCP Nurse Practitioner Family; Visit Provider Nurse Practitioner Family
DX: Z12.11 Encounter for screening for malignant neoplasm of colon (principal); Z00.00 Encounter for general adult medical examination without abnormal findings; N40.0 Benign prostatic hyperplasia without lower urinary tract symptoms
CPT/HCPCS: 99396

== ENCOUNTER 2023-04-14 08:13 | Outpatient (REF) | payer OTHER, SELFPAY ==
[2023-04-14 10:17] LABS: MANUAL DIFF FLAG NO
[2023-04-14 10:25] LABS: Basophils Absolute Auto 0.1 X10*3/uL (0.0-0.2); Basophils Percent Auto 1.2 % (0-2); Eosinophils Absolute Auto 0.2 X10*3/uL (0.0-0.4); Eosinophils Percent Auto 3.5 % (0-4); Hematocrit 43.1 % (42.0-52.0); Hemoglobin 13.9 g/dl (14.0-18.0); Imm Gran Abs Auto 0.02 X10*3/uL (0.00-0.03); Imm Gran Pct Auto 0.3 % (0.0-0.4); Lymphocytes Absolute Auto 1.7 X10*3/uL (1.2-4.9); Lymphocytes Percent Auto 29.9 % (20-40); Mean Corpuscular HGB Conc 32.3 g/dl (31.0-36.0); Mean Corpuscular Hemoglobin 27.8 pg (27.0-33.0); Mean Corpuscular Volume 86.2 fL (80.0-98.0); Mean Platelet Volume 11.2 fL (9.4-12.4); Monocytes Absolute Auto 0.5 X10*3/uL (0.1-1.2); Neutrophils Absolute Auto 3.3 x10*3/uL (2.0-8.3); Neutrophils Percent Auto 56.1 % (45-73); Platelet Count 223 X10*3/uL (160-400); Red Cell Distribution Width 13.7 % (11.0-16.0); White Blood Count 5.8 X10*3/uL (4.8-10.8)
[2023-04-14 11:10] LABS: Alanine Aminotransferase 36 U/L (0-40); Albumin Level 4.6 g/dL (3.5-5.0); Alkaline Phosphatase 73 U/L (39-117); Anion Gap 16 (12-20); Aspartate Amino Transferase 40 U/L (5-37); Bilirubin Total 0.6 mg/dL (0.0-1.0); Blood Urea Nitrogen 12 mg/dL (9-16); Calcium 9.4 mg/dL (8.4-10.2); Carbon Dioxide 29 mmol/L (22-29); Chloride 103 mmol/L (96-108); Cholesterol 283 mg/dL (<200); Estimated Glomerular Filt Rate > 60; Glucose Fasting 113 mg/dL (60-99); HDL Cholesterol 40 mg/dL (>40); LDL Cholesterol Calculated 208 mg/dL (<100); Potassium 4.1 mmol/L (3.3-5.1); Sodium 144 mmol/L (135-145); Total Protein 7.6 g/dL (6.5-8.0); Triglycerides 176 mg/dL (<150)
[2023-04-14 11:18] LABS: Prostate Specific Antigen Scr 0.26 ng/mL (<0.05-4.0)
[2023-04-14 11:27] LABS: TSH reflex Free T4 1.85 uIU/mL (0.32-4.0)
== END 2023-04-14 08:14 | disposition home or self-care (01) ==
LOC: HO.HMGCLDS 08:13
PROVIDERS: PCP Nurse Practitioner Family; Visit Provider Nurse Practitioner Family
DX: Z00.00 Encounter for general adult medical examination without abnormal findings (principal); Z12.5 Encounter for screening for malignant neoplasm of prostate; Z13.6 Encounter for screening for cardiovascular disorders
CPT/HCPCS: 36415; 80053; 80061; 84153; 84443; 85025

== ENCOUNTER 2023-04-15 06:00 | Outpatient (REF) | payer OTHER, SELFPAY ==
[2023-04-15 11:30] LABS: Appearance Urine Clear; Color Urine Yellow; Glucose Urine UA Negative (Negative); Leukocyte Esterase Urine Negative (Negative); Nitrite Urine Negative (Negative); PH 5.5 (5.0-9.0); Urine Blood Negative (Negative); Urine Ketones Negative (Negative); Urine Protein Negative (Neg-Trace)
== END 2023-04-15 06:01 | disposition home or self-care (01) ==
LOC: HO.HMGCLNP 06:00
PROVIDERS: PCP Nurse Practitioner Family; Visit Provider Nurse Practitioner Family
DX: Z00.00 Encounter for general adult medical examination without abnormal findings (principal)
CPT/HCPCS: 81003

== ENCOUNTER 2023-06-21 09:12 | Outpatient (AMB) | payer BC, SELFPAY ==
--- NOTE | 2023-06-21 09:19 | A.OFFVIS_ITS ---
Intake Visit Reasons: BPH/without lower urinary tract symptoms Intake Note: New patient is present for BPH W/O lUTS First time patient is seeing urologist Patient states that he was unsure of this new patient appointment but states he has never had his prostate examined Patient states that his father currently has Prostate Cancer no other Family members mentioned PVR: 9 Allergies oxycodone [OXYCODONE] Allergy (Severe, Verified 04/11/23 07:45) VOMITING acetaminophen [Percocet] Adverse Reaction (Unknown, Verified 04/11/23 07:45) Vomiting trazodone Adverse Reaction (Verified 04/11/23 07:45) upset stomach, vomiting Enviromental Allergy (Unknown, Uncoded 04/11/23 07:45) unknown HPI Comments Details: Naseem is a very pleasant male. He is a patient of Dr. Youssef. 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 follow-up FOR[facility]LY [facility], [facility] Medical History Mild ascending aorta dilatation Surgical History H/O heart surgery Family History Unknown Mental health disorder Social History Housing: House Alcohol intake: current Alcohol intake frequency: holidays/special occasions only Patient Tobacco Use Status: Never used Tobacco e-Cigarette/Vaping Use: Never Used Second Hand Smoke Exposure: No service: No Current occupational status: employed Current occupation: [employer] Current occupational exposures/hazards: Yes Cognitive needs: No Hearing needs: No Vision needs: Yes Review of Systems Const Denies chills and Denies fever(s) Card Reports no additional complaints and Denies syncope Resp Denies cough GI Denies abdominal pain and Denies heartburn Reports as per HPI and Denies change in libido Neuro Denies syncope Psych Denies change in libido Endo Denies change in libido Physical Exam Const General: cooperative, healthy appearing, comfortable and no acute distress Orientation/consciousness: patient oriented x3 HEENT Face and sinus: Yes normal facial exam Mouth: moist mucous membranes Neck Neck: Yes normal visual inspection, Yes full ROM and Yes trachea midline Chest Chest palpation & inspection: normal inspection of the chest Resp Effort & Inspection: normal respiratory effort, able to speak in complete sentences and no respiratory distress GI Inspection: Yes normal to inspection Back/Spine/Pelvis Cervical Spine: normal cervical lordosis Thoracic/Lumbar Spine: thoracic and lumbar spine normal to inspection Skin General skin exam: no rashes or lesions noted Neuro General: patient oriented x3, gait normal, tone normal and moves all extremities Extrem General: Yes normal to inspection and Yes capillary refill normal Office Procedures Post Void Residual Post Residual Void Post Void Residual (PVR): 9 [id number] Void Residual by ultrasound Assessment & Plan Assessment & Plan (1) Enlarged prostate: Code(s): N40.0 - Benign prostatic hyperplasia without lower urinary tract symptoms Category: Medical (2) Nocturia associated with benign prostatic hyperplasia: Code(s): N40.1 - Benign prostatic hyperplasia with lower urinary tract symptoms; R35.1 - Nocturia Category: Medical Plan P.r.n. follow-up Orders: Orders AMB Post Void Residual by ultrasound Today N40.0 - Benign prostatic hyperplasia without lower urinary tract symptoms Patient Instructions: Imaging studies, laboratory and physical exam results were discussed and reviewed in detail. No major barriers to patient understanding were identified. An opportunity to ask questions regarding the treatment plan was provided. All questions were answered. The patient expressed understanding and agreement with the above treatment plan. The patient is aware they should contact our office by phone for worsening of their current condition or the appearance of new urologic symptoms. Compliance is encouraged with any medications and followup testing that is ordered. It is a privilege to participate in the urologic care of your patient. If you h ave any questions or concerns regarding treatment for the above conditions, or other urologic issues, please do not hesitate to contact me. The office telephone contact is [phone]. This note is constructed using voice recognition software. While every effort has been made to ensure accuracy well treatment offsider errors may have been included. Yours sincerely, Dr Reinaldo Simpson MD, [facility] - Urology Providers of Expert, Compassionate Care for the Genitourinary System Coding Level of Care Code New Pt Level 3 (60056) Diagnoses Enlarged prostate N40.0 Nocturia associated with benign prostatic hyperplasia N40.1; R35.1 CPT Codes Post Residual Void - PVR CPT Code: 58584-Qmty Void Residual by ultrasound ([id number])
== END 2023-06-21 09:48 | disposition home or self-care (01) ==
PROVIDERS: PCP Nurse Practitioner Family; Visit Provider Urology
DX: N40.0 Benign prostatic hyperplasia without lower urinary tract symptoms (principal); N40.1 Benign prostatic hyperplasia with lower urinary tract symptoms; R35.1 Nocturia
CPT/HCPCS: 99203

== ENCOUNTER → 2023-06-21 09:12 | Outpatient (BNVA) | payer OTHER, SELFPAY | PROVIDERS: PCP Nurse Practitioner Family; Visit Provider Urology | DX: N40.1 Benign prostatic hyperplasia with lower urinary tract symptoms (principal); R35.1 Nocturia | CPT/HCPCS: 51798 ==

== ENCOUNTER 2023-07-27 11:48 | Outpatient (AMB) | payer BC, SELFPAY ==
[2023-07-27 09:58] VITALS: BP 136/82; PULSE 76; O2SAT 98; BMI 30.8
--- NOTE | 2023-07-27 09:58 | MHC.PC.OV ---
Vital Signs 07/27/23 09:58 Height 6 ft 2 in Weight 240 lb BMI 30.8 BP 136/82 Blood Pressure Location Rt brachial Position Sitting Pulse 76 Pulse Source Pulse Oximeter Pulse Oximetry (%) 98 Intake Visit Reasons: knee chec Intake Note: pt is here today for knee check Allergies oxycodone [OXYCODONE] Allergy (Severe, Verified 07/27/23 12:20) VOMITING acetaminophen [Percocet] Adverse Reaction (Unknown, Verified 07/27/23 12:20) Vomiting trazodone Adverse Reaction (Verified 07/27/23 12:20) upset stomach, vomiting Enviromental Allergy (Unknown, Uncoded 07/27/23 12:20) unknown Medication List - Last Reconciled 07/27/23 by DEWAYNE Gregg atorvastatin 20 mg PO BEDTIME citalopram 40 mg PO DAILY omeprazole 20 mg PO DAILY Tobacco use date assessed: 07/27/23 Dental Screening Dental Screen Date: 07/27/23 HPI HPI Comments History of Present Illness Details Patient is a 58-year-old male in today for a sick visit. I am meeting him for the 1st time. Patient has chief complaint of acute on chronic right knee pain x 2 weeks. Patient states that he has history of right meniscus issues, had workup with Orthopedic surgery 1 year prior was not able to get treatment due to losing job and losing his insurance coverage at that point. He states that over the past year the right knee pain has subsided, however, at his new job he is working close to 60 hours per week and has developed slight right knee discomfort. Denies any tingling or numbness. Denies any saddle numbness. States he has full range of motion. Describes the pain as an ache which is worse after a long shift. No history of his right knee suddenly giving out . Now the patient has not sure it is he would like to reestablish treatment options offered to him 1 year prior by Orthopedics. Will refer [facility] Medical History Mild ascending aorta dilatation Surgical History H/O heart surgery Family History Unknown Mental health disorder Father Prostate cancer Social History Housing: House Alcohol intake: current Alcohol intake frequency: holidays/special occasions only Patient Tobacco Use Status: Never used Tobacco e-Cigarette/Vaping Use: Never Used Second Hand Smoke Exposure: No service: No Current occupational status: employed Current occupation: [employer] Current occupational exposures/hazards: Yes Cognitive needs: No Hearing needs: No Vision needs: Yes Questionnaire Thrive Questionnaire Date Thrive assessed: 04/11/23 LULY-7 AMB Questionnaire LULY-7 Date LULY - 7 assessed: 04/11/23 Source: Developed by Drs. Kev Alonzo, Yelena Gill, Morales Fair and colleagues, with an educational marissa from [employer]. Review of Systems Const All systems reviewed & are unremarkable except as noted in HPI and below Physical exam (Primary Care) Vital Signs: Last Vital Signs Pulse 76 07/27/23 09:58 BP 136/82 07/27/23 09:58 Pulse Ox 98 07/27/23 09:58 Care Plan Goal for BP management: Blood pressure controlled. BMI result Body Mass Index 30.8 Tobacco/Smoking Status: Tobacco use Status Tobacco use date assessed 07/27/23 07/27/23 09:59 Patient Tobacco Use Status Never used Tobacco 07/27/23 09:59 e-Cigarette/Vaping Use Never Used 07/27/23 09:59 Thrive Assessment: Date of Thrive Assessment Date Thrive assessed 04/11/23 07/27/23 09:59 Const Other: Appearance: Alert.? Oriented X3.? No acute distress.? Head: Normocephalic CVS: Normal heart rate and rhythm.? Pulses normal.? Respiratory: No respiratory distress.? Breath sounds normal.? Skin: Skin warm and dry.? Normal skin color.? Normal skin turgor.? Extremities: No lower extremity edema.? +Crepitus of right knee. Patient able to squat and stand on one leg. Back: No midline tenderness, no C-spine tenderness, full range of motion, no CVA tenderness bilaterally Neuro: Oriented X 3.? No motor deficit.? No sensory deficit. CN 2-12 intact Assessment and Plan Assessment & Plan (1) Tear of medial meniscus of right knee: Comment: Patient has no motor or sensory deficits of right knee. Will refer patient to orthopedic to reestablish care. Code(s): S83.241A - Other tear of medial meniscus, current injury, right knee, initial encounter Qualifiers: Tear current or old: unspecified Encounter type: subsequent encounter Meniscus tear of knee type: unspecified type Qualified Code(s): S83.241D - Other tear of medial meniscus, current injury, right knee, subsequent encounter Coding Level of Care Code Est Pt Level 3 (70081) Diagnoses Tear of medial meniscus of right knee, unspecified tear type, unspecified whether old or current tear, subsequent encounter S83.241D Tear current or old: unspecified Encounter type: subsequent encounter Meniscus tear of knee type: unspecified type Time Spent (min) 24
== END 2023-07-27 12:21 | disposition home or self-care (01) ==
PROVIDERS: PCP Nurse Practitioner Family; Visit Provider Nurse Practitioner Primary Care
DX: S83.241D Other tear of medial meniscus, current injury, right knee, subsequent encounter (principal)
CPT/HCPCS: 99213

== ENCOUNTER 2023-08-22 15:04 | Outpatient (AMB) | payer BC, SELFPAY ==
--- NOTE | 2023-08-22 15:14 | A.OFFVIS_ITS ---
Intake Visit Reasons: Preop RT Knee 08/25/23 Intake Note: Naseem 57 yr old male presents with complaints of progressively worsening right knee pain and giving way. The patient states that he underwent right knee arthroscopic surgery approximately 20 years ago when he twisted his knee while jumping over a large pipe. The patient was doing fine until recently when he re-injured his knee. Pt states he was going into an attic during work and twisted your knee and then he fell on a rock 5 days later on the same knee. Patient complaining of right knee locking, giving out and swelling. Has tried cold/hot compresses with little relief. He has a brace on but states he hears popping in his knee. The patient states that his right knee symptoms are very similar to those he experienced 20 years ago prior to his arthroscopic surgery. He has had multiple injections. The most recent injection gave him minimal relief. He has also tried Tylenol and anti-inflammatory medicines which gave him minimal relief. The patient has done physical therapy for 12 weeks over the last 6 months which aggravated his pain. He states that his right knee will give out several times per day. Allergies oxycodone [OXYCODONE] Allergy (Severe, Verified 08/22/23 15:15) VOMITING acetaminophen [Percocet] Adverse Reaction (Unknown, Verified 08/22/23 15:15) Vomiting trazodone Adverse Reaction (Verified 08/22/23 15:15) upset stomach, vomiting Enviromental Allergy (Unknown, Uncoded 08/22/23 15:15) unknown Medication List - Last Reconciled 08/22/23 by Adelfo Monsalve MD atorvastatin 20 mg PO BEDTIME citalopram 40 mg PO DAILY omeprazole 20 mg PO DAILY [facility] Medical History GERD (gastroesophageal reflux disease) Anxiety Mild ascending aorta dilatation Surgical History Hx of arthroscopic knee surgery History of cardiac radiofrequency ablation Family History Unknown Mental health disorder Father Prostate cancer Social History Housing: House Are you a primary customer care consultant to a significant other at home: No Do you presently have visiting nurse or other home services: No Alcohol intake: current Alcohol intake frequency: holidays/special occasions only Patient Tobacco Use Status: Never used Tobacco e-Cigarette/Vaping Use: Never Used Second Hand Smoke Exposure: No service: No Current occupational status: employed Current occupation: [employer] Current occupational exposures/hazards: Yes Cognitive needs: No Hearing needs: No Vision needs: Yes Physical Exam Const Other: Well-nourished well-developed very friendly male awake alert and oriented x3 in no acute distress Extrem Other: Bilateral lower extremity examination shows good capillary refill, no skin lesions noted, normal sensation light touch Right knee examination shows a minimal effusion, minimal crepitus with range of motion, tenderness along his medial and lateral joint lines, positive Charleen's test, no instability Results Reviewed Results Reviewed: Standing full weight-bearing x-rays of the patient's right knee show mild diffuse joint space narrowing, no acute bony abnormalities MRI of the patient's right knee shows mild diffuse degenerative changes as well as tearing of the medial and lateral menisci Assessment & Plan Assessment & Plan (1) Tear of medial meniscus of right knee: Comment: Patient has no motor or sensory deficits of right knee. Will refer patient to orthopedic to reestablish care. Code(s): S83.241A - Other tear of medial meniscus, current injury, right knee, initial encounter Category: Medical Qualifiers: Tear current or old: unspecified Encounter type: subsequent encounter Meniscus tear of knee type: unspecified type Qualified Code(s): S83.241D - Other tear of medial meniscus, current injury, right knee, subsequent encounter Plan Mr. Corral presents with progressively worsening right knee pain and mechanical symptoms due to tearing of his medial and lateral menisci. I had a lengthy discussion with the patient regarding the treatment options. At this point he has failed continued non operative treatments. The risks and benefits of right knee arthroscopic surgery were discussed at length with the patient. The patient wishes to proceed with surgery. Surgery will involve right knee diagnostic arthroscopy with partial medial and lateral meniscectomies. The patient does understand that he may not get 100% relief of his symptoms depending on the severity of his degenerative changes. He was given a prescription for Dilaudid at his preoperative appointment. He will follow-up as instructed. Feel free to call me at any time should questions regarding his orthopedic management arise. I spent 22 minutes in reviewing the patient's records and imaging studies, seeing the patient and documenting in the medical record. Medications: New hydromorphone (Dilaudid) Partial Fill upon patient request. 2 mg PO Q6H PRN 10 tabs 0RF pain Coding Level of Care Code Est Pt Level 3 (59238) Diagnoses Tear of medial meniscus of right knee, unspecified tear type, unspecified whether old or current tear, subsequent encounter S83.241D Tear current or old: unspecified Encounter type: subsequent encounter Meniscus tear of knee type: unspecified type
== END 2023-08-22 15:26 | disposition home or self-care (01) ==
PROVIDERS: PCP Nurse Practitioner Family; Visit Provider Orthopaedic Surgery
DX: S83.241D Other tear of medial meniscus, current injury, right knee, subsequent encounter (principal)
CPT/HCPCS: 99214

== ENCOUNTER → 2023-08-22 15:04 | Outpatient (BNVA) | payer OTHER, SELFPAY | PROVIDERS: PCP Nurse Practitioner Family; Visit Provider Orthopaedic Surgery ==

== ENCOUNTER 2023-08-25 06:56 | Day surgery (SDC) | payer BC, SELFPAY ==
[2023-08-21 08:15] VITALS: BMI 31.7
[2023-08-25 07:21] VITALS: BP 148/85; PULSE 62; RESP 16; TEMP 36.4; O2SAT 94
[2023-08-25] MEDS: Lactated Ringers 1,000 ML 50 ML IVCONT (07:44)
--- NOTE | 2023-08-25 08:39 | HO.ANESPROP2 ---
[facility] Active Problems Active Problems: All Active Problems Nocturia associated with benign prostatic hyperplasia (Acute) Enlarged prostate (Acute) Physical exam (Acute) Tear of medial meniscus of right knee (Acute) Knee pain (Acute) Swelling of knee joint, right (Acute) Dyslipidemia (Acute) Left shoulder pain (Acute) Left shoulder pain (Acute) Flank pain (Acute) Hematuria (Acute) Nocturnal leg movements (Acute) Restless legs syndrome (Acute) Hypersomnia (Acute) Snoring (Acute) Elevated liver enzymes (Acute) SVT (supraventricular tachycardia) (Acute) Fatigue (Acute) Screening for colon cancer (Acute) Screening PSA (prostate specific antigen) (Acute) Fatigue (Acute) Past Medical History Medical History (Updated 08/25/23 @ 07:05 by Dorothy Diggs RN) SVT (supraventricular tachycardia) GERD (gastroesophageal reflux disease) Anxiety Mild ascending aorta dilatation Family History Family History Unknown Mental health disorder Father Prostate cancer Family history of problems with anesthesia: No Surgical History Surgical History (Updated 08/25/23 @ 07:05 by Dorothy Diggs RN) Hx of arthroscopic knee surgery History of cardiac radiofrequency ablation History of Problems with Anesthesia: No Social History Social History Housing: House Are you a primary intensive care ambulance paramedic to a significant other at home: No Do you presently have visiting nurse or other home services: No Alcohol intake: current Alcohol intake frequency: holidays/special occasions only Patient Tobacco Use Status: Never used Tobacco e-Cigarette/Vaping Use: Never Used Second Hand Smoke Exposure: No Use of substances other than those prescribed or required for medical reasons: No Have you been hit, kicked, punched, or otherwise hurt by someone within the past year? If so, by whom?: No Are you DNR?: No Advance Directives: No Advance Directives Information Provided: Yes Advance Directives on File: No Recently lost weight without trying: No Eating poorly because of decreased appetite: No Nutrition Risks: No Nutritional Risk Poor oral hygiene: No service: No Current occupational status: employed Current occupation: [employer] Current occupational exposures/hazards: Yes Cognitive needs: No Hearing needs: No Vision needs: Yes Meds Allergies Allergy/AdvReac Type Severity Reaction Status Date / Time oxycodone [OXYCODONE] Allergy Severe VOMITING Verified 08/22/23 15:15 acetaminophen [Percocet] AdvReac Unknown Vomiting Verified 08/22/23 15:15 trazodone AdvReac upset Verified 08/22/23 15:15 stomach, vomiting Enviromental Allergy Unknown unknown Uncoded 08/22/23 15:15 Active Medications: Current Medications Lactated Ringer's (Lr) 1,000 mls @ 50 mls/hr IVCONT .Q20H SCOOBY Last Admin: 08/25/23 07:44 Dose: 50 mls/hr Home Medications ?Medication ?Instructions ?Recorded ?Confirmed ?Last Taken ?Type omeprazole 20 mg tablet,delayed 20 mg PO DAILY 09/22/20 08/22/23 Unknown History release Exam Height,Weight and Vital Signs: Height 6 ft 1 in Weight 108.862 kg Last Vital Signs Temp 97.6 F 08/25/23 07:21 Pulse 62 08/25/23 07:21 Resp 16 08/25/23 07:21 BP 148/85 H 08/25/23 07:21 Pulse Ox 94 08/25/23 07:21 O2 Del Method Room Air 08/25/23 07:21 Airway Mallampati Class: II TM Dist: >3cm Neck ROM: Full Heart: rrr Lungs: cta Assessment and Plan Assessment Anesthesia Assessment: Anesthesia Plan Discussed and Chart Reviewed Final Anesthetic Review Family History of Problems with Anesthesia: No History of Problems with Anesthesia: No NPO: Yes ASA Class: II Final Preanesthetic Review: No Changes in Pt Med Stat, Meds/Allgs Chart Reviewed and Consent Obtained/Reviewed Patient Risk: Low Procedure Risk: Low Anesthetic Plan Anesthetic Plan: GA Disposition: Standard PACU
--- NOTE | 2023-08-25 09:56 | P.BOP_ITS ---
Brief Operative Note Date of Service: 08/25/23 Pre-op diagnosis: Right knee medial and lateral meniscus tears, right knee degenerative joint disease Post-op diagnosis: same Procedure: Right knee diagnostic arthroscopy with arthroscopic partial medial and lateral meniscectomies, chondroplasty of the undersurface of the patella and the trochlear groove Implants: none Surgeon: Adelfo Monsalve MD Anesthesia: GLMA Was an Tray Drier Operator used for this Procedure?: No Estimated blood loss (mL): 10 Pathology: none sent Condition: stable Disposition: PACU
[2023-08-25 10:00] VITALS: BP 138/80; PULSE 70; RESP 16; TEMP 36.4; O2SAT 91
--- NOTE | 2023-08-25 10:00 | W.PM.OPN ---
Operative Note Operative Note Date of Service: 08/25/23 Narrative: After the patient was identified as Naseem Corral and his right knee was initialed by myself they were brought to the operating room where general anesthesia was induced by the anesthesiologist in routine fashion. The patient was given 2 g of IV Ancef for infection prophylaxis. A formal time-out was completed. The patient's right lower extremity was prepped and draped in sterile fashion. Marcaine with epinephrine was injected into the planned incision sites as well as their right knee joint. A # 11 scalpel blade was used to make an anterolateral portal 1 cm proximal to the joint line and 1 cm lateral to the patellar tendon. Blunt trocar technique was used into the suprapatellar pouch with the knee in extension. Diagnostic arthroscopy showed multiple bands of thickened plica which would be excised at the end of the procedure. There were no loose bodies or abnormalities found in either the medial or lateral gutters. There were diffuse grades 1 and 2 degenerative changes of the undersurface of the patella as well as grades 3 and 4 degenerative changes of the trochlear groove. The patient's knee was flexed to 45 degrees and a valgus force was placed upon it. The medial compartment was entered. An anteromedial portal was made 1 cm proximal to the joint line and 1 cm medial to the patellar tendon. Probing of the medial meniscus showed a radial tear of the anterior horn. A partial medial meniscectomy was performed using the arthroscopic shaver. Following the partial meniscectomy the remainder of the meniscus tissue was stable. There were diffuse grades 1 and 2 degenerative changes of the medial femoral condyle as well as diffuse grade 1 degenerative changes of the medial tibial plateau. The articular surface of the medial femoral condyle was made smooth using the arthroscopic shaver. The articular surface of the medial tibial plateau was already smooth so no chondroplasty was indicated. The patient's knee was then placed into a neutral position. There was no injury to the anterior cruciate ligament. The patient's knee was then placed into the figure of 4 position and the lateral compartment was entered. There were minimal degenerative changes of the lateral femoral condyle and lateral tibial plateau. There was a radial tear of the anterior horn of the lateral meniscus. A partial lateral meniscectomy was performed using the arthroscopic shaver. Following the partial meniscectomy the remainder of the meniscus tissue was stable. The patient's knee was once again brought into extension and the suprapatellar pouch was entered. The arthroscopic shaver and the ArthroCare Wand were used to excise the thickened bands of plica. The undersurface of the patella and the trochlear groove articular surface were made smooth using the arthroscopic shaver. The knee joint was irrigated and then drained. All arthroscopic instruments were removed. The 2 portals were closed with 3-0 nylon interrupted suture. The knee joint was injected with Marcaine. Dry sterile dressing and Jonathan bandages were placed over the patient's knee. The patient was awoken and extubated in the operating room. They were transferred to the recovery room in stable condition.
[2023-08-25 10:05] VITALS: BP 106/67; PULSE 70; RESP 16; O2SAT 94
[2023-08-25 10:10] VITALS: BP 134/81; PULSE 72; RESP 16; O2SAT 94
[2023-08-25] MEDS: cefTRIAXone sodium 1 GM in 0.9 % Sodium Chloride 50 ML IV (10:14)
[2023-08-25 10:15] VITALS: BP 119/86; PULSE 71; RESP 20; O2SAT 95
[2023-08-25 10:30] VITALS: BP 132/81; PULSE 68; RESP 20; TEMP 36.3; O2SAT 95
== END 2023-08-25 11:10 | disposition home or self-care (01) ==
PROVIDERS: PCP Nurse Practitioner Family; Visit Provider Orthopaedic Surgery
PROC: (CPT 29870; principal; 2023-08-25 09:10)
DX: S83.241A Other tear of medial meniscus, current injury, right knee, initial encounter (principal); S83.281A Other tear of lateral meniscus, current injury, right knee, initial encounter; M17.11 Unilateral primary osteoarthritis, right knee; M25.461 Effusion, right knee; M67.51 Plica syndrome, right knee; X50.1XXA Overexertion from prolonged static or awkward postures, initial encounter; Y93.89 Activity, other specified; Y99.0 Civilian activity done for income or pay; Y92.89 Other specified places as the place of occurrence of the external cause; W01.0XXA Fall on same level from slipping, tripping and stumbling without subsequent striking against object, initial encounter; Y99.9 Unspecified external cause status; Y93.01 Activity, walking, marching and hiking; Y92.9 Unspecified place or not applicable; I47.10 Supraventricular tachycardia, unspecified; K21.9 Gastro-esophageal reflux disease without esophagitis; E78.5 Hyperlipidemia, unspecified; F41.9 Anxiety disorder, unspecified; Z79.899 Other long term (current) drug therapy; Z88.5 Allergy status to narcotic agent; Z98.890 Other specified postprocedural states
CPT/HCPCS: 29880; 29876; J0171; J0690; J0696; J1885; J2250; J2704; J2795; J3010

== ENCOUNTER → 2023-08-25 06:56 | Outpatient (BNV) | payer BC, SELFPAY | PROVIDERS: PCP Nurse Practitioner Family; Visit Provider Orthopaedic Surgery | DX: S83.241A Other tear of medial meniscus, current injury, right knee, initial encounter (principal); S83.281A Other tear of lateral meniscus, current injury, right knee, initial encounter | CPT/HCPCS: 29880 ==

== ENCOUNTER 2023-09-01 11:43 | Outpatient (AMB) | payer BC, SELFPAY ==
--- NOTE | 2023-09-01 11:46 | MHC.OFFVIS ---
Vital Signs 09/01/23 11:50 Height 6 ft 1 in Weight 240 lb BMI 31.7 BP 117/70 Blood Pressure Location Lt brachial Position Sitting Pulse 80 Intake Visit Reasons: Colonoscopy Screening Intake Note: Patient new consult for Colonoscopy screening. Patient cc: Diarrhea and GERD. Denies any other GI issues. Erecting Crane Operator Required: No Accompanied by: Self / Same As Patient Allergies oxycodone [OXYCODONE] Allergy (Severe, Verified 09/01/23 11:46) VOMITING acetaminophen [Percocet] Adverse Reaction (Unknown, Verified 09/01/23 11:46) Vomiting trazodone Adverse Reaction (Verified 09/01/23 11:46) upset stomach, vomiting Enviromental Allergy (Unknown, Uncoded 08/22/23 15:15) unknown HPI HPI Colonoscopy Screening: Details: 58 year old? male here today for pre colonoscopy screening.? Patient was sent to us by his PCP.? This is his first colonoscopy screening.? Patient denies any gastrointestinal symptoms in the past or at present.? However patient does report that he might have occasional loose stool after certain meals. Denies melena, hematochezia, unintentional weight loss or ribbon like stools. Patient is on omeprazole, has been on omeprazole for very long time. Patient states that if he stops medication he will have reflux back. Denies any personal or family history of gastrointestinal disease, colon polyps, or CRC.? Denies history of difficulty with sedation or anesthesia in the past.? Negative for history of sleep apnea.? Denies any history of cardiac, renal, pulmonary, or hepatic disease.?? No history of infectious? diseases like hepatitis A, B, C, HIV or tuberculosis.? Patient is not on any anticoagulation [facility] Medical History (Updated 08/25/23 @ 07:05 by Dorothy Diggs RN) SVT (supraventricular tachycardia) GERD (gastroesophageal reflux disease) Anxiety Mild ascending aorta dilatation Surgical History Hx of arthroscopic knee surgery History of cardiac radiofrequency ablation Family History Unknown Mental health disorder Father Prostate cancer Social History Housing: House Are you a primary personal care aid to a significant other at home: No Do you presently have visiting nurse or other home services: No Alcohol intake: current Alcohol intake frequency: holidays/special occasions only Patient Tobacco Use Status: Never used Tobacco e-Cigarette/Vaping Use: Never Used Second Hand Smoke Exposure: No service: No Current occupational status: employed Current occupation: [employer] Current occupational exposures/hazards: Yes Cognitive needs: No Hearing needs: No Vision needs: Yes Review of Systems Const Denies weight gain and Denies weight loss ENT Reports no additional complaints, Denies dysphagia and Denies odynophagia Card Reports no additional complaints Resp Reports no additional complaints GI Denies abdominal pain, Denies belching, Denies melena, Denies bloating, Denies change in bowel habits, Denies dysphagia, Denies excessive flatus, Denies dyspepsia, Reports heartburn (Occasional), Denies diarrhea, Reports loose stools (Occasional), Denies nausea, Denies odynophagia and Denies vomiting Reports no additional complaints Musc Reports no additional complaints Neuro Reports no additional complaints Psych Reports no additional complaints Endo Reports no additional complaints Physical Exam Vital Signs: Last Vital Signs Pulse 80 09/01/23 11:50 BP 117/70 09/01/23 11:50 BMI result Body Mass Index 31.7 Const General: healthy appearing and no acute distress Nutritional Appearance: obese Orientation/consciousness: patient oriented x3 Resp Effort & Inspection: normal respiratory effort, able to speak in complete sentences, no tracheal deviation and symmetric chest movement Auscultation: clear to auscultation bilaterally Cardio Rate: regular rate GI Inspection: Yes normal to inspection, No distended and Yes obesity Palpation (GI): Soft to palpation, not firm, nontender and No hepatosplenomegaly present Auscultation: normal bowel sounds General: Yes no CVA tenderness Back/Spine/Pelvis Back: no CVA tenderness Skin General skin exam: elasticity normal, turgor normal and dry skin Neuro General: patient oriented x3 Psych Appearance: grossly normal Mental Status: mental status grossly normal Assessment & Plan Assessment & Plan (1) Screening for colon cancer: Code(s): Z12.11 - Encounter for screening for malignant neoplasm of colon Category: Medical (2) GERD (gastroesophageal reflux disease): Code(s): K21.9 - Gastro-esophageal reflux disease without esophagitis Qualifiers: Esophagitis presence: esophagitis presence not specified Qualified Code(s): K21.9 - Gastro-esophageal reflux disease without esophagitis Plan Patient denies any cardiac or respiratory symptoms.? Occasional loose stools postprandially. Otherwise patient reports that he has been moving his bowels without any issues. Reflux that has been treated for many years. Acid reflux present if patient starts medication. Will send him for upper endoscopy to rule out gastritis, esophagitis, duodenitis, Winston's. Denies any issues with anesthesia in the past.? Denies any history of sleep apnea.? No history infectious diseases in the past or present.? Not on any anticoagulation therapy.? No family or personal history of colon cancer or polyps.? Patient denies melena, hematochezia, unintentional weight loss or ribbon like stools.? Discussed at length the pre-procedure,? prep, diet & medications as well as what to expect prior, during and after the procedure.?? Stressed the importance of good bowel prep.? Recommended the use of Vaseline or Calmoseptine OTC & baby wipes with bowel movements to promote comfort.? ?Patient verbalizes understanding and agrees to plan of care.? He was given the opportunity to ask questions and all questions answered.? We will see him after the procedure.? Medications: New bisacodyl (Dulcolax (bisacodyl)) take 4 tabs at noon the day before your colonoscopy 20 mg (4 x 5 mg) PO ONCE 1 day 4 tabs 0RF Z12.11 - Encounter for screening for malignant neoplasm of colon polyethylene glycol 3350 (Miralax) As directed by gastroenterology department at [facility] 238 grams PO ONCE 238 grams 0RF Z12.11 - Encounter for screening for malignant neoplasm of colon Coding Level of Care Code New Pt Level 3 (01332) Diagnoses Screening for colon cancer Z12.11 Gastroesophageal reflux disease, unspecified whether esophagitis present K21.9 Esophagitis presence: esophagitis presence not specified Time Spent (min) 40 Comment 30 minutes spent with patient and additional 10 minutes spent reviewing his records
[2023-09-01 11:50] VITALS: BP 117/70; PULSE 80; BMI 31.7
== END 2023-09-01 12:53 | disposition home or self-care (01) ==
PROVIDERS: PCP Nurse Practitioner Family; Visit Provider Nurse Practitioner Family
DX: K21.9 Gastro-esophageal reflux disease without esophagitis (principal); Z01.818 Encounter for other preprocedural examination; Z12.11 Encounter for screening for malignant neoplasm of colon
CPT/HCPCS: 99203

== ENCOUNTER → 2023-09-01 11:43 | Outpatient (BNVA) | payer OTHER, SELFPAY | PROVIDERS: PCP Nurse Practitioner Family; Visit Provider Nurse Practitioner Family ==

== ENCOUNTER 2023-09-05 11:36 | Outpatient (AMB) | payer BC, SELFPAY ==
--- NOTE | 2023-09-05 11:37 | MHC.OFFVIS ---
Intake Visit Reasons: PO-Rt Knee 08/25/23 Intake Note: Naseem is a 58 year old male who presents today for a post operative visit s/p Right Knee 08/25/23. Patient reports that as of Monday09/02/23 the right knee is very sore to the touch and very red around the stitches. He did work on Monday and forgot to wrap his knee, so his pants were rubbing on the stitches. He denies any fevers or chills. Allergies oxycodone [OXYCODONE] Allergy (Severe, Verified 09/05/23 11:41) VOMITING acetaminophen [Percocet] Adverse Reaction (Unknown, Verified 09/05/23 11:41) Vomiting trazodone Adverse Reaction (Verified 09/05/23 11:41) upset stomach, vomiting Enviromental Allergy (Unknown, Uncoded 09/05/23 11:41) unknown Medication List - Last Reconciled 09/05/23 by Adelfo Monsalve MD atorvastatin 20 mg PO BEDTIME bisacodyl (Dulcolax (bisacodyl)) 20 mg (4 x 5 mg) PO ONCE 1 day citalopram 40 mg PO DAILY hydromorphone (Dilaudid) 2 mg PO Q6H PRN omeprazole 20 mg PO DAILY polyethylene glycol 3350 (Miralax) 238 grams PO ONCE sulfamethoxazole-trimethoprim 800-160 mg (Bactrim DS) 1 tab PO BID 5 days PFSH Medical History (Updated 09/05/23 @ 12:27 by Adelfo Monsalve MD) SVT (supraventricular tachycardia) GERD (gastroesophageal reflux disease) Anxiety Mild ascending aorta dilatation Surgical History Hx of arthroscopic knee surgery History of cardiac radiofrequency ablation Family History Unknown Mental health disorder Father Prostate cancer Social History Housing: House Are you a primary medicare sales executive to a significant other at home: No Do you presently have visiting nurse or other home services: No Alcohol intake: current Alcohol intake frequency: holidays/special occasions only Patient Tobacco Use Status: Never used Tobacco e-Cigarette/Vaping Use: Never Used Second Hand Smoke Exposure: No service: No Current occupational status: employed Current occupation: [employer] Current occupational exposures/hazards: Yes Cognitive needs: No Hearing needs: No Vision needs: Yes Physical Exam Extrem Other: Right knee examination shows that the surgical incisions are healing well, there is a small amount of redness measuring less than 1 cm around his sutures, no drainage, full active extension and flexion to 120 degrees, minimal discomfort with range of motion, no effusion Assessment & Plan Assessment & Plan (1) Right knee pain: Code(s): M25.561 - Pain in right knee Category: Medical Plan Mr. Corral is doing well after undergoing right knee arthroscopic surgery on 08/25/2023. His sutures were removed and Steri-Strips placed over his incisions. I did give him a prescription for Bactrim which he will take for the next 5 days for possible early cellulitis. Will contact me prior to his follow-up appointment in 2-3 weeks should any questions or concerns arise. Feel free to call me at any time should questions regarding his orthopedic management arise. Medications: New sulfamethoxazole-trimethoprim 800-160 mg (Bactrim DS) 1 tab PO BID 10 tabs 0RF 5 days Coding Level of Care Code Global (87821) Diagnoses Right knee pain M25.561
== END 2023-09-05 12:21 | disposition home or self-care (01) ==
PROVIDERS: PCP Nurse Practitioner Family; Visit Provider Orthopaedic Surgery
DX: M25.561 Pain in right knee (principal)
CPT/HCPCS: 99024

== ENCOUNTER → 2023-09-05 11:36 | Outpatient (BNVA) | payer BC, SELFPAY | PROVIDERS: PCP Nurse Practitioner Family; Visit Provider Orthopaedic Surgery ==

== ENCOUNTER 2024-06-26 08:23 | Outpatient (AMB) | payer BC, SELFPAY ==
--- NOTE | 2024-06-26 08:26 | AM.OFFWIN_ITS ---
Intake Vital Signs 06/26/24 08:29 Weight 235 lb BP 140/90 H Blood Pressure Location Lt brachial Position Sitting Pulse 79 Pulse Source Pulse Oximeter Temp 98.2 F Temp Source Oral Pulse Oximetry (%) 98 Oxygen Delivery Method Room Air Intake Visit Reasons: EP- diarrhea (3-4 days) Intake Note: Patient here for diarrhea that has been going on for about 4 days. Patient Tobacco Use Status: Never used Tobacco Allergies oxycodone [OXYCODONE] Allergy (Severe, Verified 06/26/24 08:29) VOMITING acetaminophen [Percocet] Adverse Reaction (Unknown, Verified 06/26/24 08:29) Vomiting trazodone Adverse Reaction (Verified 06/26/24 08:) upset stomach, vomiting Enviromental Allergy (Unknown, Uncoded 06/26/24 08:) unknown Do you need a note to return to daycare/school/sports/work: Yes HPI HPI Comments History of Present Illness Details He presents to office with diarrhea Ongoing since the monday onset of heartburn at night when laying in bed Has improved this week Now has continual watery diarrhea Has been traveling but no eating out; only traveling [facility] No abdominal pain or cramping; 0/10 Going 4/5 times a day; watery stool He has not noticed terrible odor but said + odor without similar symptoms No fever or chills e takes omeprazole daily which helped No melena or brbpr No hx of abdominal surgeries Denies CP, SOB Denies urine symptoms PFSH Medical History (Updated 06/26/24 @ 09:03 by Judit Welch PA-C) SVT (supraventricular tachycardia) GERD (gastroesophageal reflux disease) Anxiety Mild ascending aorta dilatation Surgical History Hx of arthroscopic knee surgery History of cardiac radiofrequency ablation Family History Unknown Mental health disorder Father Prostate cancer Social History Housing: House Are you a primary rn progressive care unit to a significant other at home: No Do you presently have visiting nurse or other home services: No Alcohol intake: current Alcohol intake frequency: holidays/special occasions only Patient Tobacco Use Status: Never used Tobacco e-Cigarette/Vaping Use: Never Used Second Hand Smoke Exposure: No service: No Current occupational status: employed Current occupation: [employer] Current occupational exposures/hazards: Yes Cognitive needs: No Hearing needs: No Vision needs: Yes Review of Systems Const Denies chills, Denies fatigue and Denies fever(s) ENT Denies dizziness Card Denies chest pain and Denies dyspnea Resp Denies chest congestion, Denies cough and Denies dyspnea GI Denies melena, Denies hematochezia, Denies constipation, Reports heartburn, Reports diarrhea, Denies nausea and Denies vomiting Denies difficulty urinating Musc Denies back pain and Denies myalgias Skin/Breast Denies rash Neuro Denies dizziness Psych Reports other (increased stress at work) Endo Denies fatigue Physical Exam Vital Signs: Last Vital Signs Temp 98.2 F 06/26/24 08:29 Pulse 79 06/26/24 08:29 BP 140/90 H 06/26/24 08:29 Pulse Ox 98 06/26/24 08:29 Oxygen Delivery Method Room Air 06/26/24 08:29 General: Non-toxic, NAD. Speaking full sentences. Skin: Warm dry throughout Eye: EOMI HENT: Airway patent. Uvula midline. No pharyngeal erythema or edema. No NANNY/HOUSEHOLD MANAGER. Moist mucosal membranes Bilateral canals clear. TM non-erythematous, non-bulging. No TM perforation or hemotympanum noted. Respiratory: CTA bilaterally. No wheezes, rales or rhonchi Cardiac: RRR. No murmur ABdomen: BS presents x 4. Minimal ttp light/deep palpation epigastric region. No othr abdominal ttp. No guarding. No pulsitile mass. MSK: Full ROM extremities. Neurology: Alert. No aphasia or facial droop. Gait without abnormality Psych: Good mood and affect Assessment & Plan Assessment & Plan (1) Diarrhea: Code(s): R19.7 - Diarrhea, unspecified Qualifiers: Diarrhea type: unspecified type Qualified Code(s): R19.7 - Diarrhea, unspecified Plan: Patient seen and evaluated. Non-toxic appearing No acute abdomen Increase fluids Discussed imodium use; but don't overuse Discussed diet change Manage stress Stool culture discussed and if symptoms continual on Monday will call for order to be placed Patient gave verbal understanding and had no additional questions or concerns at time of discharge All questions answered Coding Level of Care Code Est Pt Level 3 (72488) Diagnoses Diarrhea, unspecified type R19.7 Diarrhea type: unspecified type
[2024-06-26 08:29] VITALS: BP 140/90; PULSE 79; TEMP 36.8; O2SAT 98
--- OUTSIDE RECORDS SUMMARY | 2024-06-26 08:33 | XMS_ITS | Clinical Summary ---
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 Name Role Phone Unavailable Primary Care Provider Unavailabl e Social History Tobacco Use Types Packs/Day Years Used Date Smoking Tobacco: Never Assessed Sex and Gender Information Value Date Recorded Sex Assigned at Not on file Legal Sex Male 2:48 PM EDT Gender Identity Not on file Sexual Orientation Not on file Plan of Treatment Health Maintenance Due Date Last Done Comments Hepatitis C Screening 1965 DTaP/Tdap/Td (1 - Tdap) 01/07/1982 Pneumococcal 50+ years (1 of 1 - PCV) 01/07/2014 Zoster (Shingrix) (1 of 2) 01/07/2014 COVID-19 Vaccine ( - 2023-2 5 season) 2023 Influenza (Season Ended) 2024 RSV (1 - 1-dose 75+ series) 01/07/2039 HPV Vaccine Aged Out No longer eligi ble based on patient's age to complete this topic Hep A Aged Out No longer eligi ble based on patient's age to complete this topic Hep B Aged Out No longer eligi ble based on patient's age to complete this topic Hib Aged Out No longer eligi ble based on patient's age to complete this topic Meningococcal ACWY Aged Out No longer eligible based on patient's age to complete this topic Zoster (Zostavax) Discontinued
== END 2024-06-26 09:03 | disposition home or self-care (01) ==
PROVIDERS: PCP Nurse Practitioner Family; Visit Provider Physician Assistant
DX: R19.7 Diarrhea, unspecified (principal)

== ENCOUNTER → 2024-06-26 08:23 | Outpatient (BNVA) | payer BC, SELFPAY | PROVIDERS: PCP Nurse Practitioner Family; Visit Provider Physician Assistant ==